=== PATIENT | male | born 1995 | race Asian ===

== ENCOUNTER 2024-03-30 18:08 | Emergency (ER) | payer BC, OTHER, MEDICAID, SELFPAY ==
[2024-03-30 18:12] VITALS: BP 150/84
[2024-03-30] MEDS: ATIVAN 2 MG IM (18:18)
[2024-03-30] MEDS: KEPPRA 2000 MG IV (18:30)
[2024-03-30 18:32] LABS: % Basophils 0.2 % (0-2); % Immature Granulocytes 0.3 % (0-0.5); % Lymphocytes 8.9 % (20.5-51.1); % Monocytes 7.4 % (1.7-9.3); % Neutrophils 83.2 % (42.2-75.2); Absolute Lymphocytes 1.2 10^3/uL (1.2-3.4); Hematocrit 42.2 % (39.0-52.0); Hemoglobin 15.2 g/dL (13.0-18.0); Mean Corpuscular Hgb 32.3 pg (27.0-31.0); Mean Corpuscular Volume 89.6 fL (80.0-94.0); Mean Platelet Volume 9.3 fL (7.4-10.4); Nucleated Red Blood Cells % 0 % (-); Platelet Count 375 10^3/uL (130-400); Red Blood Cell Count 4.71 10^6/uL (4.70-6.10); Red Cell Dist. Width 12.5 % (11.5-14.5); White Blood Cell Count 13.2 10^3/uL (4.8-10.8)
[2024-03-30 18:34] LABS: Glucose - Point of Care 87 mg/dl (70-99)
[2024-03-30 18:39] VITALS: BMI 26.3
[2024-03-30 18:43] LABS: ALT (SGPT) 72 U/L (0-50); AST (SGOT) 64 U/L (17-59); Albumin 5.1 g/dl (3.5-5.0); Alkaline Phosphatase 88 U/L (38-126); Blood Urea Nitrogen 7 mg/dl (9-20); Calcium 10.4 mg/dl (8.4-10.2); Carbon Dioxide 25 mmol/L (22-30); Chloride 97 mmol/L (98-107); Estimated Creatinine Clearance > 125 ml/min; Glucose 103 mg/dl (70-99); Potassium 4.4 mmol/L (3.5-5.1); Sodium 138 mmol/L (135-145); Total Bilirubin 1.5 mg/dl (0.2-1.3); Total Protein 8.1 g/dl (6.3-8.2); eGFR > 60.00
[2024-03-30] MEDS: TORADOL 15 MG IV (18:55)
[2024-03-30 19:00] VITALS: BP 141/92
[2024-03-30 19:15] VITALS: BP 129/81
--- NOTE | 2024-03-30 19:55 | ED.GENMED ---
History of Present Illness
General
Chief Complaint: Seizure
Time Seen by Provider: 03/30/24 18:21
History of Present Illness
History of Present Illness:
29-year-old male with history of seizure disorder and polysubstance abuse presents with Undercoater's due to seizure activity. Patient was being transported from [facility] to [facility] when he began to have seizure
activity. He was apparently admitted to [facility] 2 days ago for seizure activity and was prescribed levetiracetam which is his normal antiseizure medicine. On arrival the patient is unable to tell me when his last dose of
antiepileptics was. He states his last use of 'tranq' was 5 days ago. On arrival he is tremulous and grunting but noted to have purposeful movement of the extremities as well as swallowing activity
Past History
Past History
ED Past Medical History: Seizures (on keppra/gabapentin)
Social History
Tobacco: Former smoker
Drug: Former user (heroin/xanax)
Living: [facility]
Employment: Not employed
Review of Systems
Review of Systems
Allergies reviewed?: Yes
All Other Systems: ROS reviewed and negative except as documented in HPI and ROS
Phy Exam
Physical Exam
Physical Exam:
GEN: Disheveled, tremulous and grunting
Eyes: PERRLA, EOMs intact, no scleral icterus
HENT: NCAT, oral mucosa moist, maintaining airway, no oral secretions
Lungs: CTAB, no wheezes, rales, rhonchi, normal chest wall excursion
Cardiac: Mildly tachycardic, no murmur
Abdomen: S, NT, ND, NABS, no masses or hepatosplenomegaly
Neuro: Somnolent, arouses to tactile stimuli
MSK: No gross deformity or ecchymosis. No edema. No digital clubbing
Skin: No rashes, petechiae. Normal color, no pallor or jaundice.
Psych: Calm, cooperative, proper hygiene
Course
Orders/Labs/Results
Orders:
Orders
03/30/24 18:12
Lorazepam [Ativan] 4 mg .ROUTE .STK-MED ONE
03/30/24 18:17
Lorazepam [Ativan] 2 mg IM NOW STA
03/30/24 18:21
Levetiracetam Injectable [Keppra] 2,000 mg IV NOW STA
03/30/24 18:25
Complete Blood Count/With Diff Urgent
Comprehensive Metabolic Panel Urgent
03/30/24 18:50
Ketorolac [Toradol] 30 mg .ROUTE .STK-MED ONE
03/30/24 18:54
Ketorolac [Toradol] 15 mg .ROUTE .STK-MED ONE
Ketorolac [Toradol] 15 mg IV NOW STA
03/30/24 19:55
Buprenorphine [Subutex] 8 mg SL NOW STA
Gabapentin [Neurontin] 600 mg PO NOW STA
Abnormal Lab Results
03/30/24
18:25
WBC 13.2 H 10^3/uL
(4.8-10.8)
MCH 32.3 H pg
(27.0-31.0)
Absolute Neuts (auto) 11.0 H 10^3/uL
(1.4-6.5)
Absolute Monos (auto) 1.0 H 10^3/uL
(0.1-0.6)
Neutrophils % 83.2 H %
(42.2-75.2)
Lymphocytes % 8.9 L %
(20.5-51.1)
Chloride 97 L mmol/L
(98-107)
BUN 7 L mg/dl
(9-20)
Creatinine 0.6 L mg/dL
(0.7-1.3)
Glucose 103 H mg/dl
(70-99)
Calcium 10.4 H mg/dl
(8.4-10.2)
Total Bilirubin 1.5 H mg/dl
(0.2-1.3)
AST 64 H U/L
(17-59)
ALT 72 H U/L
(0-50)
Albumin 5.1 H g/dl
(3.5-5.0)
03/30/24 18:25
03/30/24 18:25
Vital Signs
Initial and Last Documented VS:
Initial Vital Signs
Temp Pulse Resp BP Pulse Ox
98 F 72 20 150/84 95
03/30/24 18:12 03/30/24 18:12 03/30/24 18:12 03/30/24 18:12 03/30/24 18:12
Last Documented Vital Signs
Temp Pulse Resp BP Pulse Ox
98 F 93 17 130/69 96
03/30/24 18:12 03/30/24 20:15 03/30/24 20:15 03/30/24 20:00 03/30/24 20:15
MDM/Problems Addressed
MDM/Problems Addressed:
Patient's initial presentation concerning for seizure in the setting of lack of antiepileptic use however his seizure-like activity resolved on its own. He was given 2 mg of Ativan with no further seizure-like activity in the emergency department.
His labs are reassuring. Given loading dose of IV Keppra, remained stable in the emergency department. Initiated on buprenorphine due to symptoms of withdrawal in the setting of polysubstance abuse, medically stable for discharge to correctional
facility
*Critical Care Note
Total Time (30-74mins, 75-104mins- exclusive of procedures): Not Applicable
ED Attending Note
-
Portions of this chart may have been created with voice recognition software.� Occasional wrong word or��sound alike� substitutions may have occurred due to the inherent limitations of voice recognition software.
Discharge Plan
Departure
Patient Disposition: Skilled Nursing
Date of Disposition: 03/30/24
Time of Disposition: 19:56
Discharge Problem:
Seizure, Polysubstance abuse
Instructions: Seizures, Adult (DC)
Prescriptions:
No Action
levetiracetam 500 MG tablet
1,000 mg PO BID
ibuprofen 200 MG tablet
400 mg PO BIDPRN PRN (Reason: mild pain)
buprenorphine HCl 2 MG tablet, sublingual
10 mg sublingual DAILY 0RF
buprenorphine HCl 8 MG tablet, sublingual
10 mg sublingual DAILY 0RF
quetiapine [Seroquel] 100 MG tablet
100 mg PO HS Qty: 30 0RF
gabapentin 300 MG capsule
300 mg PO TID Qty: 90 0RF
Referrals:
UNKNOWN - PT DOES,NOT KNOW [Family Provider] -
Activity Restrictions/Additional Instructions:
Valeriy Srivastava is medically cleared for incarceration
He received a loading dose of IV levetiracetam in the emergency department and should be administered his oral dose promptly after arrival. He was also initiated on buprenorphine as his last substance use was 5 days ago
Interventions
Interventions:
*Risk Screen - Suicide Last Done: 03/30/24 18:12
*General Assessment Last Done: 03/30/24 18:12
*Neglect/Abuse Screening Last Done: 03/30/24 18:12
*Nursing Disposition Last Done: 03/30/24 21:06
ED- Cardiac Assessment Last Done: 03/30/24 18:39
ED- Neurological Assessment Last Done: 03/30/24 18:39
ED- Pulmonary Assessment Last Done: 03/30/24 18:39
Discharge Date and Time
Discharge Date/Time: 03/30/24 21:07
Print Language: BULGARIAN
[2024-03-30 20:00] VITALS: BP 130/69
[2024-03-30] MEDS: NEURONTIN 600 MG PO (20:15)
[2024-03-30] MEDS: SUBUTEX 8 MG SL (20:15)
== END 2024-03-30 21:07 ==
LOC: EMR 18:08
PROVIDERS: Physician Assistant; EMERGENCY PHYSICIAN Emergency Medicine
DX: G40.909 Epilepsy, unspecified, not intractable, without status epilepticus (principal); F19.10 Other psychoactive substance abuse, uncomplicated; Z79.899 Other long term (current) drug therapy
CPT/HCPCS: 99284; 96374; 96375; 96372; 80053; 82962; 85025

== ENCOUNTER 2025-06-27 15:04 | Inpatient (IN) | payer OTHER, SELFPAY ==
[2025-06-27] VITALS (9 sets, daily range): BP systolic 128–143; BP diastolic 65–92; BMI 29.5; BMI 28.8
[2025-06-27 10:25] LABS: Hematocrit 49.7 % (39.0-52.0); Hemoglobin 17.0 g/dL (13.0-18.0); Mean Corp Hgb Conc. 34.2 g/dL (33.0-37.0); Mean Corpuscular Volume 87.3 fL (80.0-94.0); Nucleated Red Blood Cells % 0 % (-); Platelet Count 327 10^3/uL (130-400); Red Cell Dist. Width 13.4 % (11.5-14.5)
--- NOTE | 2025-06-27 10:26 | ED.GENMED ---
History of Present Illness
General
Chief Complaint: Seizure
Source: patient, records and police
Exam Limitations: none
Time Seen by Provider: 06/27/25 09:45
Nursing documentation reviewed up to this point in time: agreed with
History of Present Illness
History of Present Illness:
30-year-old male with a past medical history of polysubstance use, seizures, hypertension who presents to the emergency department in police custody from [facility]; presents for evaluation after apparent seizure. Patient reports that
he was at rehab at [facility] for polysubstance use�he says he has been using dexmedetomidine, fentanyl, alcohol, benzodiazepines. He says that prior to rehab at [facility] he was seen at [facility] for polysubstance
withdrawal and was admitted to the hospital. He says that he has been using drugs even during his stay in rehab with last use being 2 days ago reportedly. Apparently today he was arrested, transferred from [facility] and at [facility]
was witnessed to have an approximately 2-minute long tonic-clonic seizure. There was a report of postictal period. He was transported to the ER to be evaluated. Currently in the emergency room he says that he feels he is 'severely withdrawing.'
He says that he is 'sweating buckets' and that he feels nauseated and achy, shaky.
Past History
Past History
ED Past Medical History: Seizures (on keppra/gabapentin)
Social History
Tobacco: Former smoker
Drug: Former user (heroin/xanax)
Living: halfway
Employment: Not employed
Review of Systems
Review of Systems
All Other Systems: ROS reviewed and negative except as documented in HPI and ROS
Constitutional: Reports fatigue and chills; Denies fever
Respiratory: Denies trouble breathing
Cardiac: Reports diaphoresis; Denies chest pain
ABD/GI: Reports nausea; Denies abdominal pain
Neurological: Reports headache and other (Tremulous)
Psychiatric: Reports anxiety
Phy Exam
Physical Exam
Physical Exam:
General: Awake, alert, oriented x3; not toxic-appearing
Head: Normocephalic, atraumatic
Eyes: Conjunctiva normal, EOMI, pupils equal round and reactive to light bilaterally
Throat: Airway intact, handling secretions, tongue atraumatic
Neck: Trachea midline, supple without meningismus
Lungs: Clear to auscultation bilaterally, no wheezing, rales, rhonchi
Heart: Regular rate and rhythm, no murmurs, gallops, or rubs
Abd: Soft, non distended, nontender
Neuro: Cranial nerves grossly intact, speech fluid
Skin: Skin is warm and dry; he does have psoriatic rash on the chest and extremities which he says is chronic
Extremities: Warm and well-perfused
Scores
COW Clinical Opiate Withdrawal Scale
Resting Pulse Rate: 80 or below
Sweating-over past 30min not from room temp or activity: Reports chills or flushing
Restlessness-observation during assessment: Able to sit still
Pupil Size: Pupils pinned or normal size for room light
Bone or Joint Aches: Mild diffuse discomfort
Runny Nose or Tearing-not accounted for by cold/allergies: Not present
GI Upset-over last 30min: Nausea or loose stool
Tremor-observation of outstretched hands: No tremor
Yawning-observation during assessment: No yawning
Anxiety or Irritability: Patient reports increasing irritability or anxiousness
Gooseflesh Skin: Skin is smooth
Score: 5
Withdrawal Severity: Mild Withdrawal
Heart Failure Risk
Heart Failure Risk Score: Not Applicable
Heart Score for Chest Pain Patients
STEMI patient?: Not applicable
Withdrawal Assessment of Alcohol
Withdrawal Assessment Completed?: Yes
Nausea and Vomiting: Mild nausea with no vomiting
Tactile Disturbances: None
Tremor: No tremor
Auditory Disturbances: Not present
Paroxysmal Sweats: No sweat visible
Visual Disturbances: Not present
Anxiety: Moderately anxious, or guarded, so anxiety is inferred
Headache, Fullness in Head: Mild
Agitation: Normal activity
Orientation and clouding of sensorium: Oriented and can do serial additions
Total CIWA Score: 7
Alcohol Withdrawal Medication Recommendation: Equal to MSAS Score 0-4. Monitor & re-assess q2hrs, NO MEDICATION NEEDED
Course
Orders/Labs/Results
Orders:
Orders
06/27/25 10:07
Levetiracetam Injectable [Keppra] 1,000 mg .ROUTE .STK-MED ONE
06/27/25 10:19
Alcohol Urgent
Complete Blood Count/With Diff Urgent
Comprehensive Metabolic Panel Urgent
Creatine [Creatine Phosphokinase] Urgent
06/27/25 10:29
Keppra (Levetiracetam) [S] Urgent
Levetiracetam Injectable [Keppra] 1,000 mg IV NOW STA
06/27/25 10:30
Drug Screen, Urine [Urine Drug Abuse Screen] Urgent
0.9% Sodium Chloride 1000 ml [Nss] 1,000 ml IV BOLUS
Ceribell [Rapid Point of Care EEG (ED/ICU ONLY)] Q1H
Indications for use:: History of Epilepsy
06/27/25 10:34
Add On- LAB Urgent
Tests Added?: alcohol, keppra
Gabapentin [Neurontin] 300 mg PO NOW STA
06/27/25 11:27
NEUROLOGY CONSULT Urgent
Consulting Provider: Darnell Patel
Was physician already notified: Yes
06/27/25 11:39
Methadone HCl [Methadone 100 mg/10 ml] 115 mg PO ONCE ONE
Abnormal Lab Results
06/27/25
10:19
Absolute Neuts (auto) 6.7 H 10^3/uL
(1.4-6.5)
Neutrophils % 79.6 H %
(42.2-75.2)
Lymphocytes % 16.1 L %
(20.5-51.1)
Potassium 5.4 H mmol/L
(3.5-5.1)
Glucose 108 H mg/dl
(70-99)
Calcium 10.5 H mg/dl
(8.4-10.2)
AST 100 H U/L
(17-59)
ALT 51 H U/L
(0-50)
Creatine Kinase 6190 H U/L
(55-170)
Total Protein 9.9 H g/dl
(6.3-8.2)
Albumin 5.7 H g/dl
(3.5-5.0)
06/27/25 10:19
06/27/25 10:19
Vital Signs
Initial and Last Documented VS:
Initial Vital Signs
Temp Pulse Resp BP Pulse Ox
37.1 C 76 17 133/81 99
06/27/25 09:43 06/27/25 09:43 06/27/25 09:43 06/27/25 09:43 06/27/25 09:43
Last Documented Vital Signs
Temp Pulse Resp BP Pulse Ox
37.1 C 76 17 133/81 99
06/27/25 09:43 06/27/25 09:43 06/27/25 09:43 06/27/25 09:43 06/27/25 10:27
MDM/Problems Addressed
Differential Diagnosis Includes:
Seizure: Seizure disorder, withdrawal seizure, pseudoseizure
MDM/Problems Addressed:
30-year-old male with history as noted presents from [facility] after witnessed seizure-like activity. He has apparent history of seizures and is on Keppra also has a history of polysubstance use and was recently transferred from
[facility] where he was in rehab. He says he was still using drugs and rehab primary drugs being dexmedetomidine, fentanyl, benzos, alcohol. Vitals and exam are as above�while he has many complaints and says that he feels he is in withdrawal all
of his symptoms are subjective and he has no objective signs of withdrawal�he is normotensive without tachycardia or tachypnea. He says he feels he is sweating buckets but his skin is dry. Pupils are midrange and reactive, reports nausea but no
vomiting here. No piloerection. MSAS and COWS scores are as noted above. At this point we will hold off on benzodiazepines or other medications. Can provide some fluids, check labs, observe here in the ER for now.
Patient had an episode here of shaking activity�I assessed him at bedside during the episode which lasted for about a minute or 2. It self resolved. During the episode he was having rhythmic shaking of the arms and legs and twitching of the face
but seemed to be exhibiting some purposeful activities. He seemed to relax his arm to allow for an IV placement during the episode. Hold off on benzos as episode self terminated but will treat with IV Keppra. Seizure precautions. Cerebell
applied for monitoring of signs of status.
Patient had another brief episode while wearing cerebella but no status detected. Quickly self resolved. Labs reviewed CBC is unremarkable, CMP shows mild hyperkalemia and his CPK is elevated at 6190 consistent with mild rhabdomyolysis.
Thankfully his renal function is normal. IV fluids in progress. Elevated CPK at least suggestive of some seizure activity versus rhabdomyolysis from other. Discussed with neurology for consultation. Will admit for continued monitoring.
Discussed case with hospitalist.
Patient is requesting his dose of methadone. Confirmed that last dose of methadone was yesterday at [facility] 115 mg. Ordered dose here.
Chronic conditions affecting care:
Seizure history, polysubstance use
*Pulse Oximetry
SaO2: 99
Patient hypoxic: no (99%)
*Critical Care Note
Total Time (30-74mins, 75-104mins- exclusive of procedures): Not Applicable
Data Reviewed
Review of Other/Old Records Reveals: Labs and Records
Source: patient and records (See attached snapshots from care everywhere where I was able to review recent visits to [facility])
Patient Management
Discussion with other providers: Hospitalist (Discussed with hospitalist) and Suppression Crew Leader (Discussed with neurologist)
Escalation/DeEscalation of care consider admission/obs:
Admission indicated
Update Note
Update Note:
ED Attending Note
-
Portions of this chart may have been created with voice recognition software.� Occasional wrong word or��sound alike� substitutions may have occurred due to the inherent limitations of voice recognition software.
Discharge Plan
Departure
Patient Disposition: Admit
Date of Disposition: 06/27/25
Time of Disposition: :31
Admit to doctor: Bryan
Presentation/result/management discussed w/ accepting MD/DO: Hospitalist
Patient with high blood pressure during this ER visit?: No
Discharge Problem:
Seizures, Polysubstance use disorder, Rhabdomyolysis
Prescriptions:
No Action
clonidine HCl 0.1 mg Tablet
0.1 mg PO BID
acetaminophen [Tylenol] 325 mg Tablet
650 mg PO Q4HPRN PRN (Reason: mild pain)
triamcinolone acetonide 0.5 % Cream
1 applic TOPICAL BID
levetiracetam [Keppra] 500 mg Tablet
500 mg PO BID
methadone 10 mg Tablet
115 mg PO DAILY
clindamycin HCl 150 mg Capsule
300 mg PO Q6H
Rx Instructions:
start 06/23/25 and stop 06/30/25
chlorpromazine [Thorazine] 10 mg Tablet
10 mg PO Q6HPRN PRN (Reason: hiccups)
magnesium hydroxide [Milk of Magnesia] 400 mg/5 mL Suspension
2,400 mg PO DAILYPRN PRN (Reason: constipation)
gabapentin 800 mg Tablet
800 mg PO TID
ibuprofen [Motrin] 400 mg Tablet
400 mg PO TIDPRN PRN (Reason: mild pain)
nicotine 21 mg/24 hr Patch 24 Hour
1 patch TRANSDERMAL DAILY
docusate sodium [Colace] 100 mg Capsule
100 mg PO BID
folic acid 1 mg Tablet
1 mg PO DAILY
clonidine 0.3 mg/24 hr Patch Weekly
1 patch TRANSDERMAL TH
alum-mag hydroxide-simeth [Maalox] 200-200-20 mg/5 mL Suspension
30 ml PO QIDPRN PRN (Reason: heartburn)
benzocaine 20 % Gel
1 applic MUCOUS MEMBRANE BIDPRN PRN (Reason: mouth pain)
Leoti Cough Drops Lozenge
3.1 mg MUCOUS MEMBRANE Q4HPRN PRN (Reason: cough)
nicotine (polacrilex) 4 mg Lozenge
4 mg BUCCAL Q2HPRN PRN (Reason: nicotine craving)
bupropion HCl [Wellbutrin XL] 150 mg Tablet Extended Release 24 Hr
150 mg PO DAILY
cholecalciferol (vitamin D3) [Vitamin D3] 25 mcg (1,000 unit) Tablet
25 mcg PO DAILY
Cepacol Sore Throat (isabel-men) 15-2.6 mg Lozenge
1 rika MUCOUS MEMBRANE Q4HPRN PRN (Reason: sore throat)
guaifenesin 600 mg Tablet Extended Release 12hr
1,200 mg PO BIDPRN PRN (Reason: cough)
Referrals:
[facility] [Family Provider, General]
Interventions
Interventions:
*Risk Screen - Suicide Last Done: 06/27/25 09:49
*ED COVID-19 Vaccine History Last Done: 06/27/25 09:50
ED- Cardiac Assessment Last Done: 06/27/25 09:53
ED- Neurological Assessment Last Done: 06/27/25 09:53
ED- Pulmonary Assessment Last Done: 06/27/25 09:54
Discharge Date and Time
Print Language: KITTITIAN
[2025-06-27] MEDS: KEPPRA 1000 MG IV (10:34)
[2025-06-27] MEDS: NSS 1000 IV ×2 (10:35→15:28)
[2025-06-27] MEDS: NEURONTIN 300 MG PO (11:12)
[2025-06-27 11:13] LABS: ALT (SGPT) 51 U/L (0-50); AST (SGOT) 100 U/L (17-59); Albumin 5.7 g/dl (3.5-5.0); Alkaline Phosphatase 103 U/L (38-126); Blood Urea Nitrogen 15 mg/dl (9-20); Calcium 10.5 mg/dl (8.4-10.2); Carbon Dioxide 25 mmol/L (22-30); Chloride 102 mmol/L (98-107); Estimated Creatinine Clearance > 125 ml/min; Glucose 108 mg/dl (70-99); Potassium 5.4 mmol/L (3.5-5.1); Sodium 137 mmol/L (135-145); Total Protein 9.9 g/dl (6.3-8.2); eGFR > 60.00
--- NOTE | 2025-06-27 11:58 | HPS.HSE ---
Family Physician
-
Family Physician: Facility [facility]
Chief Complaint
-
seizures
History of Present Illness
2 guards are inside the room while on obtaining the history.
30-year-old male with past medical history of polysubstance abuse, CHF, hypertension presented to the ED in police custody from [facility] for evaluation of seizure. The seizure started today morning he felt initially dizziness, room
spinning sensation, lites hurting his eyes and really bright, shivering, nauseating and started to have seizure episodes. Asked the history from security Mr. Clarke he explained he did 1 episode for a minute, followed by nurse practitioner gave her
emergency medications. While on the ambulance he did seizure once followed by on the ED after admission for 45 seconds he seized for twice today. His last meal was yesterday afternoon around 5 PM. However 2 days ago he used dope, medetomidine,
Prazudec at [place] for substance use, he was seen at [facility] for polysubstance withdrawal and was admitted to the hospital. Where he was using the drug even during that rehab. Today he was arrested and transferred
from [place] to [facility] who was witnessed to have an approximately a minute long tonic-clonic seizure.
Currently he states that he feels restlessness, sweating, neck hurts, bugs crawling under his skin, and vomiting once. He denies chest pain, palpitation, specific abdominal pain, dysuria. On ED he got Keppra, levetiracetam IV, followed by drug
screening, sodium chloride 1000 mL IV bolus by given his creatinine kinase elevation, methadone, gabapentin 300 mg oral was given.
His past medical history which includes he was compliance on gabapentin, Keppra, he had similar episodes before twice and got admitted in [facility], diagnosed with CMV, untreated hep C. However he has no allergy history. Social
history includes using alcohol, cocaine, medetomidine, dope. He is a former smoker. His family is living at [facility], he started to having substances around 15 of his age, and he does not have congenital, and young age seizure history.
Currently he is living in [facility].
Medical History
Past Medical History
Past Medical History: Reports Seizures and Other (Substance)
Past Surgical History: Reports None
Social History
Tobacco: Former Smoker
Alcohol: Other (Depends on availability)
Drug: Marijuana, Cocaine and IVDA
Personal: Single
Living: Longterm
Employment: Not Employed
Family History
Family History: Not pertinent
Allergies / Home Medications
Allergies
Allergy/AdvReac Type Severity Reaction Status Date / Time
latex Allergy Unknown Verified 02/03/21 01:38
Home Medications
acetaminophen 325 mg tablet (Tylenol) 650 mg PO Q4HPRN PRN mild pain 06/27/25
aluminum-mag hydroxide-simethicone 200 mg-200 mg-20 mg/5 mL oral susp 30 ml PO QIDPRN PRN heartburn 06/27/25
benzocaine 15 mg-menthol 2.6 mg lozenges (Cepacol Sore Throat (benzocaine-menthol)) 1 rika mucous membrane Q4HPRN PRN sore throat 06/27/25
benzocaine 20 % mucosal gel 1 applic mucous membrane BIDPRN PRN mouth pain 06/27/25
bupropion HCl 150 mg 24 hr tablet, extended release (Wellbutrin XL) 150 mg PO DAILY 06/27/25
chlorpromazine 10 mg tablet 10 mg PO Q6HPRN PRN hiccups 06/27/25
cholecalciferol (vitamin D3) 25 mcg (1,000 unit) tablet (Vitamin D3) 25 mcg PO DAILY Supplement 06/27/25
clindamycin HCl 150 mg capsule 300 mg PO Q6H Infection 06/27/25
clonidine 0.3 mg/24 hr weekly transdermal patch 1 patch transdermal TH 06/27/25
clonidine HCl 0.1 mg tablet 0.1 mg PO BID 06/27/25
docusate sodium 100 mg capsule (Colace) 100 mg PO BID 06/27/25
eucalyptus-menthol oral mucosal lozenge 3.1 mg mucous membrane Q4HPRN PRN cough 06/27/25
folic acid 1 mg tablet 1 mg PO DAILY 06/27/25
gabapentin 800 mg tablet 800 mg PO TID 06/27/25
guaifenesin 600 mg tablet, extended release 12 hr 1,200 mg PO BIDPRN PRN cough 06/27/25
ibuprofen 400 mg tablet 400 mg PO TIDPRN PRN mild pain 06/27/25
levetiracetam 500 mg tablet (Keppra) 500 mg PO BID Seizures 06/27/25
magnesium hydroxide 400 mg/5 mL oral suspension (Milk of Magnesia) 2,400 mg PO DAILYPRN PRN constipation 06/27/25
methadone 10 mg tablet 115 mg PO DAILY 06/27/25
nicotine (polacrilex) 4 mg buccal lozenge 4 mg buccal Q2HPRN PRN nicotine craving 06/27/25
nicotine 21 mg/24 hr daily transdermal patch 1 patch transdermal DAILY 06/27/25
triamcinolone acetonide 0.5 % topical cream 1 applic topical BID psoriasis 06/27/25
Allergies reflects when Allergies were last updated in [facility].
Home Medications with original date entered in [facility]
Allergy/Medication List:
Allergies
Allergy/AdvReac Type Severity Reaction Status Date / Time
latex Allergy Unknown Verified 02/03/21 01:38
Review of Systems
-
History Source: Patient
A 12 point ROS was completed and negative except as noted: Yes
Physical Exam
Vital Signs
Vital Signs
Temp Pulse Resp BP Pulse Ox
98.8 F 76 17 133/81 99
06/27/25 09:43 06/27/25 09:43 06/27/25 09:43 06/27/25 09:43 06/27/25 10:27
Physical Exam
General: Appears in Distress, Pain and Sweats
HEENT: Moist mucous membranes and Other (mydriasis)
Respiratory: Clear
Cardiac: S1/S2 and Tachycardia
GI: Soft, Tender and No Hepatosplenomegaly
Genito-urinary: No costovertebral tender
Musculoskeletal: No Clubbing and No Edema
Skin: Warm and Rash (Bilateral elbow,, forearm rashes due to psoriatic)
Neuro: AO x 3, No Motor Deficits, Nonfocal/grossly intact, Cranial Nerves Intact, No Sensory Deficits and Tremors
Hematologic/Lymphatic: No Lymphadenopathy
Psych: Intact Judgment/Insight
Laboratory Results
-
06/27/25 10:19
06/27/25 10:19
Laboratory Results
Total Bilirubin 0.9 mg/dl (0.2-1.3) 06/27/25 10:19
AST 100 U/L (17-59) H 06/27/25 10:19
ALT 51 U/L (0-50) H 06/27/25 10:19
Alkaline Phosphatase 103 U/L (38-126) 06/27/25 10:19
Impression/Plan
-
IMPRESSION AND PLAN:
30-year-old male with past medical history of polysubstance abuse, CHF, hypertension presented to the ED in police custody from [facility] for evaluation of seizure.
# Polysubstance abuse induce seizure :
WBC normal, afebrile, similar episodes in the past, recent drug intake 2 days ago.
Received methadone, gabapentin.
Received Keppra, levetiracetam IV.
Currently on cerebella
Methadone long-acting administration for opioid withdrawal. COWS scale
Neurologist consult
bindery worker consult
Overdose education.
No need to follow up MSAS scale by given negative alcohol withdrawal urine screen.
plan: cows scale --- methadone maintenance, subutex on hold
iv 1 gm keppra, follow up with keppra level
as needed benzodiazepines medication.
Administer gabapentin 800 mg , folic acid, thiamine
Will call and inquire [facility] facility healthcare provider to know the reason for methadone instead of buprenorphine.
On telemetry currently repeat EKG series tonight and tomorrow by given methadone overnight to check has QT
EKG showed normal sinus rhythm with sinus arrhythmia, no significant
# Rhabdomyolysis secondary to SEIZURES:
Labs: WBC 8.4, hemoglobin 15.2--17 today,
Potassium 5.4, blood glucose 108 high, calcium 10.5 high, bun 15, creatinine 0.8, LFTs elevated, creatinine kinase 6190 high
Potassium binder administered for hyperkalemia.
Causes for rhabdomyolysis includes traumatic, mechanical injury, prolonged immobilization, seizures, wrist strain, surgery, drug abuse, sepsis, electrolyte disorders, heat exposure.
However in this patient he has a history of seizure
Currently on cerebella EEG today showed no evidence of status epilepticus.
Monitor CK, IV fluids administration for now
Tylenol as needed for his headache and pain
Avoid CONTRAST, NSAIDS? By given his high CPK level.
# Abnormal liver function test:
Secondary to hepatitis C positive (infection source), drug abuse
Hepatitis B IgM antibody negative unimmunized,
Order hepatitis panel but given his unimmunized status
USG ABDOMEN for tomorrow
Code: Full
Disposition: Longterm
DVT prophylaxis: Lovenox subcutaneous
Diet: regular
[2025-06-27] MEDS: METHADONE 100 MG/10 ML 115 MG PO (12:33)
--- NOTE | 2025-06-27 12:55 | W.RAPID.EEG ---
Rapid EEG
-
Procedure Date: 06/27/25
Patient Status: Emergency Room
Results:
IMPRESSION:
No evidence of status epilepticus
Patient awake and drowsy.
Recording Information:
Diagnostic Recording Time: 02:11:01 (131 minutes)
Recording 1: [email or web address]
Start Time: Jun 27, 2025 10:26 AM End Time: Jun 27, 2025 12:37 PM
Recording Technique: This EEG was obtained using a 10 lead, 8 channel system positioned circumferentially without any parasagittal coverage (rapid EEG). Computer selected EEG is reviewed as well as background features and all clinically significant
events. Clarity algorithm utilized and implemented to provide analysis of underlying activity and seizure detection used to facilitate reading. ICD-10 Code HT46L34
Clinical History: OLINDA THOMSON is a 30 year old Prior Seizure patient undergoing EEG to screen for non-convulsive status epilepticus.
--- NOTE | 2025-06-27 14:43 | CON.NEURO4 ---
Consultation - Neurology 4
-
CONSULTING PHYSICIAN: Dr. Darnell Patel
REFERRING PHYSICIAN: Dr. Josh Sanders
DICTATED BY: Dr. Darnell Patel
DATE/TIME OF REQUEST: 06/26/2025
DATE/TIME OF CONSULTATION: 06/26/2025
Reason for Consultation: Seizure
ASSESSMENT AND PLAN:
30-year-old male with a past medical history of seizure disorder, polysubstance abuse, primary hypertension that presented to the emergency department in police custody from [facility] after a witnessed seizure event. Patient was recently at [place]
rehab for polysubstance abuse (dexmedetomidine, fentanyl, alcohol, benzodiazepines) where he states he was continuing to use drugs. At some point was arrested and transferred from [place] to [facility] and during the transfer was found to have a
2-minute long tonic-clonic episode with reported postictal period subsequently. Was sent to the ED at that time. The patient says that his tongue feels sore on the left side and he also gives history of urinary incontinence.
Patient likely had a breakthrough seizure and the cause was likely that he missed Keppra and gabapentin doses over the last 2 days as per patient.
. The plan is to start the patient on Keppra 1000 mg twice a day and continue with gabapentin 800 mg 3 times daily.
. Would recommend to change home bupropion to another antidepressant as it can cause seizures. The patient will benefit from a psychiatry consult.
. Seizure precautions including no driving for 6 months and reporting to the [employer] as per law.
. Compliance with the medications was emphasized and the patient verbalized understanding of our discussion.
Follow-up with neurology outpatient in 4 to 6 weeks.
Will sign off. Please call if you have any question.
History of Present Illness:
30-year-old male with a past medical history of seizure disorder, polysubstance abuse, primary hypertension that presented to the emergency department in police custody from [facility] after a witnessed seizure event. Patient was recently at [place]
rehab for polysubstance abuse (dexmedetomidine, fentanyl, alcohol, benzodiazepines) where he states he was continuing to use drugs. At some point was arrested and transferred from [place] to [facility] and during the transfer was found to have a
2-minute long tonic-clonic episode with reported postictal period subsequently. Was sent to the ED at that time. The patient says that his tongue feels sore on the left side and he also gives history of urinary incontinence.
Past Medical History:
Seizure disorder, polysubstance abuse and primary hypertension.
Review of Systems:
The 10 point review systems was negative aside from as given the above history of present illness.
Neurologic Examination:
Alert and oriented x 3,
Sspeech is clear,
The cranial nerves II to XII grossly intact,
Visual [place] are full to confrontation bilaterally,
The motor strength is grossly 5 out of 5 bilaterally in upper and lower extremities,
The sensations are intact bilaterally,
There was no limb ataxia seen.
Vital Signs and Labs
-
Vital Signs and Labs:
Vital Signs
Temp Pulse Resp BP Pulse Ox
37.1 C 88 14 131/65 96
06/27/25 09:43 06/27/25 11:45 06/27/25 11:45 06/27/25 11:12 06/27/25 11:45
Lab Results
06/27/25 10:19
06/27/25 10:19
Sodium 137 mmol/L (135-145) 06/27/25 10:19
Potassium 5.4 mmol/L (3.5-5.1) H 06/27/25 10:19
BUN 15 mg/dl (9-20) 06/27/25 10:19
Glucose 108 mg/dl (70-99) H 06/27/25 10:19
Calcium 10.5 mg/dl (8.4-10.2) H 06/27/25 10:19
Medications
-
Active Medications
Generic Name Dose Route Start Last Admin
Trade Name Freq PRN Reason Stop Dose Admin
Sodium Chloride 1,000 mls @ 100 mls/hr 06/27/25 14:15
Nss IV
.Q10H DALIA
Home Medications
�Medication �Instructions �Recorded
acetaminophen 325 mg tablet 650 mg PO Q4HPRN PRN mild pain 06/27/25
(Tylenol)
aluminum-mag hydroxide-simethicone 30 ml PO QIDPRN PRN heartburn 06/27/25
200 mg-200 mg-20 mg/5 mL oral susp
benzocaine 15 mg-menthol 2.6 mg 1 rika mucous membrane Q4HPRN PRN 06/27/25
lozenges (Cepacol Sore Throat sore throat
(benzocaine-menthol))
benzocaine 20 % mucosal gel 1 applic mucous membrane BIDPRN 06/27/25
PRN mouth pain
bupropion HCl 150 mg 24 hr tablet, 150 mg PO DAILY 06/27/25
extended release (Wellbutrin XL)
chlorpromazine 10 mg tablet 10 mg PO Q6HPRN PRN hiccups 06/27/25
cholecalciferol (vitamin D3) 25 25 mcg PO DAILY Supplement 06/27/25
mcg (1,000 unit) tablet (Vitamin
D3)
clindamycin HCl 150 mg capsule 300 mg PO Q6H Infection 06/27/25
clonidine 0.3 mg/24 hr weekly 1 patch transdermal TH 06/27/25
transdermal patch
clonidine HCl 0.1 mg tablet 0.1 mg PO BID 06/27/25
docusate sodium 100 mg capsule 100 mg PO BID 06/27/25
(Colace)
eucalyptus-menthol oral mucosal 3.1 mg mucous membrane Q4HPRN PRN 06/27/25
lozenge cough
folic acid 1 mg tablet 1 mg PO DAILY 06/27/25
gabapentin 800 mg tablet 800 mg PO TID 06/27/25
guaifenesin 600 mg tablet, 1,200 mg PO BIDPRN PRN cough 06/27/25
extended release 12 hr
ibuprofen 400 mg tablet 400 mg PO TIDPRN PRN mild pain 06/27/25
levetiracetam 500 mg tablet 500 mg PO BID Seizures 06/27/25
(Keppra)
magnesium hydroxide 400 mg/5 mL 2,400 mg PO DAILYPRN PRN 06/27/25
oral suspension (Milk of Magnesia) constipation
methadone 10 mg tablet 115 mg PO DAILY 06/27/25
nicotine (polacrilex) 4 mg buccal 4 mg buccal Q2HPRN PRN nicotine 06/27/25
lozenge craving
nicotine 21 mg/24 hr daily 1 patch transdermal DAILY 06/27/25
transdermal patch
triamcinolone acetonide 0.5 % 1 applic topical BID psoriasis 06/27/25
topical cream
[2025-06-27] MEDS: LOKELMA 10 GRAM PO (14:46)
[2025-06-27] MEDS: CLEOCIN 300 MG PO (15:42)
[2025-06-27] MEDS: NEURONTIN 800 MG PO ×2 (15:42→22:04)
[2025-06-27] MEDS: LOVENOX 40 MG SC (17:23)
[2025-06-27] MEDS: CATAPRES 0.1 MG PO (20:21)
[2025-06-27] MEDS: ANESTHETIC LOZENGE 1 LOZENGE PO (20:22)
[2025-06-27] MEDS: KEPPRA 1000 MG PO (20:22)
[2025-06-27] MEDS: NICORETTE 4 MG PO (20:22)
[2025-06-27] MEDS: COLACE PO (20:28)
[2025-06-27] MEDS: TYLENOL 650 MG PO (20:30)
[2025-06-27] MEDS: ATIVAN 1 MG PO (22:04)
[2025-06-28] MEDS: NSS 1000 IV ×3 (01:14→21:54)
[2025-06-28 02:52] VITALS: BP 119/63
[2025-06-28 07:00] VITALS: BP 127/70
--- NOTE | 2025-06-28 07:15 | W.PN.HOSP.TC ---
Today's Communication/Plan
-
Monitor QTc, CK, urine test levetiracetam level
Follow-up with [facility] abdomen, hepatitis panel
Keppra dosage increased to 1000 mg
Reporting to [employer] driving license
Discontinue Wellbutrin.
psychologist counselling
iv fluids
Assessment / Plan
Assessment / Plan
30-year-old male with past medical history of polysubstance abuse, CHF, hypertension presented to the ED in police custody from [facility] for evaluation of seizure.
Vitals: Tmax 98.3, RI 70, BP 127/70, RR 18, SaO2 99 at room air.
Heam:
Chemistry:
Urine toxicology results positive for urine buprenorphine, methadone, benzodiazepines,
levetiracetam results are still pending
CK results are pending
# Polysubstance abuse induce seizure :
WBC normal, afebrile, similar episodes in the past, recent drug intake 2 days ago.
Received methadone, gabapentin.
Received Keppra, levetiracetam IV.
Currently on cerebella
Methadone long-acting administration for opioid withdrawal. COWS scale
Urine toxicology results positive for urine buprenorphine, methadone, benzodiazepines,
levetiracetam results are still pending
form worker consult
Overdose education.
No need to follow up MSAS scale by given negative alcohol withdrawal urine screen.
plan: cows scale --- methadone maintenance, subutex on hold
Currently received Keppra 1000 mg, monitor Keppra serum level.
as needed benzodiazepines medication.
Administer gabapentin 800 mg , folic acid, thiamine
Called [facility] and discussed regards his medications history at the facility--he was taking Wellbutrin 75 mg, 16 mg of buprenorphine previously, methadone currently he was not taking at facility.
Patient kept on telemetry and currently his QT interval 473 improved when comparing with yesterday by given the methadone administration.
EKG showed normal sinus rhythm with sinus arrhythmia, no significant
plan: Psychiatrist consultation
Follow-up on his ck level until it goes down to 500-700, until that continue IV fluids and follow-up with RFT's
Neurologist consulted: increased the dosage of Keppra 1000 mg twice a day, gabapentin 800 mg 3 times daily, and recommended to change home bupropion to another antidepressant because of low seizure threshold.
Recommended for psychiatry consult, seizure precautions including no driving for 6 months and reporting to the [facility] as per law.
Advised to compliance with the medications, follow-up with neurology outpatient in 4 to 6 weeks after the discharge.
# Rhabdomyolysis secondary to SEIZURES:
Labs: WBC 8.4, hemoglobin 15.2--17 today,
Potassium 5.4, blood glucose 108 high, calcium 10.5 high, bun 15, creatinine 0.8, LFTs elevated, creatinine kinase 6190 high
Potassium binder administered for hyperkalemia.
Causes for rhabdomyolysis includes traumatic, mechanical injury, prolonged immobilization, seizures, wrist strain, surgery, drug abuse, sepsis, electrolyte disorders, heat exposure.
However in this patient he has a history of seizure
Currently on cerebella EEG today showed no evidence of status epilepticus.
CK results for today
Tylenol as needed for his headache and pain
Avoid CONTRAST, NSAIDS? By given his high CPK level.
# Abnormal liver function test:
Secondary to hepatitis C positive (infection source), drug abuse
Hepatitis B IgM antibody negative unimmunized,
Order hepatitis panel but given his unimmunized status
USG ABDOMEN for today but given the history of hep C positive--cirrhosis?
Code: Full
Disposition: [facility].
DVT prophylaxis: Lovenox subcutaneous
Diet: regular.
Anticipated Discharge: 24 - 48 hours
Subjective/Interval History
-
Date of Service: June 28, 2025
2 guards present while obtaining the history today morning:
Overnight patient 1 bowel movement, feels chills, dizziness, 'chest feels sore' non radiating localized chest pain not associated with shortness of breath, palpitation. However he feels better in comparing with yesterday.
Spoke through phone to [facility] regards medication reconcile, they have given the details regards his medication what he was taking at the facility which includes Wellbutrin 75 mg (bupropion )once a day, buprenorphine 16 mg
weekly previously but not currently, methadone currently is not taking at facility and they had mentioned the patient might be a good team methadone from the other sources but not inside the facility.
Objective Data
-
Labs:
Laboratory Results
06/28/25
06:00
WBC Pending
Hgb Pending
Hct Pending
Plt Count Pending
Sodium Pending
Potassium Pending
Chloride Pending
Carbon Dioxide Pending
BUN Pending
Creatinine Pending
Glucose Pending
Calcium Pending
Total Bilirubin Pending
AST Pending
ALT Pending
Alkaline Phosphatase Pending
Vital Signs:
Vital Signs
Temp Pulse Resp BP Pulse Ox
97.6 F 70 16 119/63 98
06/28/25 02:52 06/28/25 02:52 06/28/25 02:52 06/28/25 02:52 06/28/25 02:52
I&O
06/27/25 06/28/25 06/29/25
06:59 06:59 06:59
Intake Total 1944 / 194
Output Total 450 / 450
Balance 1495 / 1495
Review of Systems
-
History Source: Patient
All other systems: Reviewed and negative
Physical Exam
-
General: No Apparent Distress
Respiratory: Clear to Auscultation
Cardiac: Regular Rhythm and S1/S2
GI: Soft, Nontender, Nondistended and Normal Bowel Sounds
Genito-urinary: No Costovertebral Tender
Musculoskeletal: No Clubbing and No Edema
Skin: Warm
Neuro: AO x 3, No Motor Deficits, Tremors, Nonfocal/Grossly Intact and Central Nerve's Intact
Psych: Calm
[2025-06-28] MEDS: KEPPRA 1000 MG PO ×2 (07:47→20:51)
[2025-06-28] MEDS: THIAMINE INJECTION 200 MG IV ×2 (07:48)
[2025-06-28] MEDS: FOLVITE 1 MG PO (07:48)
[2025-06-28] MEDS: CATAPRES 0.1 MG PO ×2 (07:48→20:51)
[2025-06-28] MEDS: VITAMIN D3 (cholecalciferol) 25 MCG PO (07:48)
[2025-06-28] MEDS: COLACE PO ×3 (07:48→20:51)
[2025-06-28] MEDS: NEURONTIN 800 MG PO ×3 (07:48→21:54)
[2025-06-28] MEDS: NICODERM TRANSDERMAL 21 MG TRANSDERM (07:48)
[2025-06-28] MEDS: METHADONE 100 MG/10 ML 115 MG PO (07:49)
[2025-06-28] MEDS: CATAPRES-TTS-3 0.3 MG TRANSDERM (07:50)
[2025-06-28] MEDS: TYLENOL 650 MG PO ×2 (07:52→20:56)
--- NOTE | 2025-06-28 09:37 | PTCARENOTE ---
pt aaox3. states pain in back and jaw. tylenol given. pt in room with two guards. ivf running as ordered. no seizure activity noted
[2025-06-28 11:00] VITALS: BP 118/64
[2025-06-28 12:09] LABS: Hematocrit 43.9 % (39.0-52.0); Hemoglobin 15.0 g/dL (13.0-18.0); Mean Corp Hgb Conc. 34.2 g/dL (33.0-37.0); Mean Corpuscular Volume 87.1 fL (80.0-94.0); Platelet Count 249 10^3/uL (130-400); Red Cell Dist. Width 13.4 % (11.5-14.5)
[2025-06-28 12:51] LABS: ALT (SGPT) 33 U/L (0-50); AST (SGOT) 46 U/L (17-59); Albumin 4.4 g/dl (3.5-5.0); Alkaline Phosphatase 62 U/L (38-126); Blood Urea Nitrogen 13 mg/dl (9-20); Calcium 9.6 mg/dl (8.4-10.2); Carbon Dioxide 24 mmol/L (22-30); Chloride 108 mmol/L (98-107); Estimated Creatinine Clearance > 125 ml/min; Glucose 130 mg/dl (70-99); Potassium 4.3 mmol/L (3.5-5.1); Sodium 137 mmol/L (135-145); Total Protein 7.4 g/dl (6.3-8.2); eGFR > 60.00
--- NOTE | 2025-06-28 13:20 | CS.PSYCHR ---
Consult Summary - Psychiatry
-
Pt is a 30 yo male, brought to from [facility] after a witnessed generalized seizure. Pt was on Wellbutrin XL, which has been discontinued due to seizure in setting of seizure d/o and substance use. Pt was at [facility]hab for polysubstance abuse
(dexmedetomidine, fentanyl, alcohol, benzodiazepines) where he reportedly continued to use drugs. He was arrested and transferred to [facility] and during the transfer was found to have a 2-minute tonic-clonic episode with reported postictal symptoms.
In ED pt c/o severe withdrawal symptoms- nausea, sweats and aches. Psychiatry asked to see the pt to address depression symptoms, possible alternatives to Wellbutrin XL. QTcB 473 today, was 458 yesterday.
On interview, pt is alert, oriented, calm, cooperative, slightly slowed, distracted by attempts at blood-drawing. He reports a hx of 'seasonal depression.' Pt states he has tried Zoloft, Prozac, Effexor and other SSRI's, Seroquel, as well as
Remeron for insomnia. Pt is now on Methadone 110 mg daily, Keppra, Gabapentin, Clonidine, MSAS/Ativan protocol.
PMH: Seizure d/o, hx of Hep C
Psych Hx: previously seen by Psychiatry at January 2021, Sep 2019 for similar presentations; past inpatient dual dx admissions- [place] 2019, multiple detox and rehabs- most recently at [facility] for drug rehab. Pt has a long hx of opioid,
benzo, cocaine use, including IV use.
MSE: alert, oriented, calm, cooperative. Speech coherent, thought clear/goal-directed. No suicidal ideation evident. No signs of psychosis. Mood mildly dysphoric, affect appropriate.
Insight limited to fair
Imp: Polysubstance Use, including opioid, benzo. Pt c/o seasonal depression, states Wellbutrin XL was not helping lately, now stopped due to seizure risk
Rec: There is no easy alternative to Wellbutrin XL 150 mg. SSRI's also have a small affect on the seizure threshold and potential for QTc prolongation worsened with pt's on Methadone maintenance. Discussed possibly looking at Lamictal, which is
preventive/mood-stabilizing with some antidepressant effect. Will follow and discuss further with the pt
[2025-06-28] MEDS: THIAMINE INJECTION IV ×3 (15:11→23:54)
[2025-06-28] MEDS: ATIVAN 1 MG PO (15:13)
[2025-06-28 15:30] LABS: Glucose - Point of Care 95 mg/dl (70-99)
[2025-06-28] MEDS: ATIVAN 2 MG IV (15:30)
[2025-06-28 15:32] VITALS: BP 130/101
--- NOTE | 2025-06-28 15:49 | W.PN.UPDATE ---
Update Note
Progress Note Update
around 3: 27 PM 06/28 i got tt from the nurse EMILY sent me alert TT text that the pt was having seizures, and was administered Ativan 1 mg P.O depending on COWS scale earlier today and received Ativan 2 mg iv, at the time of the episode. the
episode lasted for less than a minute, and afterwards he had confusion.
I and senior Dr Stovall were here around 3: 35 PM at the time we saw the pt he was in post ictal state however no symptoms for urination, salivation, biting tongue, or any injuries, however he was confused, and complained he has headache ' i have
headache at prefrontal cortex'. around 3: 43 PM he was able to follow the commands includes wiggling his toes, and responding for the questions.
Vitals: BP 130/101, 100% room air, RR18, Temp 98.2, HR 100
o/e: awake, drowsy, confused.
he was complaining for anxiety and requested for medication earlier today because we stopped the bupropion because of its probable risk of inducing seizures. Seen by psychiatrist earlier today.
plan:
will transfer to ICU, and record with cerebell if he has one more episode of seizures today,
consult neurology
order EEG.
IV Ativan 2 mg/ PRN for acute episode.
[2025-06-28] MEDS: LOVENOX 40 MG SC (17:10)
--- NOTE | 2025-06-28 17:37 | PTCARENOTE ---
at 1500 today pt complaining of increased anxiety msas done and ativan po given as ordered. 15 min later called into room to see pt having tonic clonic tremors. unresponsive. rapid response called. res notified. 2mg iv ativan ordered.
activity lasted approx one min. post pt lethargic and confused. pt now awake oriented and states he feels better.
[2025-06-28 18:23] LABS: Hepatitis C Antibody Reactive (Negative)
[2025-06-28 20:09] VITALS: BP 129/86
[2025-06-28] MEDS: NICORETTE 4 MG PO (20:56)
[2025-06-28] MEDS: MOTRIN 400 MG PO (23:53)
[2025-06-29] VITALS (11 sets, daily range): BP systolic 123–161; BP diastolic 76–128
[2025-06-29] MEDS: ATIVAN 1 MG PO (00:07)
--- NOTE | 2025-06-29 07:01 | W.PN.HOSP.TC ---
Today's Communication/Plan
-
PCR testing for hepatitis C antibody which is reactive, further testing for acute or chronic hep C hepatitis.
Monitor CBC
firoriset for headache if it is required in future.
Assessment / Plan
Assessment / Plan
30-year-old male with past medical history of polysubstance abuse, CHF, hypertension presented to the ED in police custody from [facility] for evaluation of seizure.
Vitals: Tmax 98.3, GA 70, BP 127/70, RR 18, SaO2 99 at room air.
Heam:
Chemistry:
Urine toxicology results positive for urine buprenorphine, methadone, benzodiazepines,
levetiracetam results are still pending
# Polysubstance abuse induce seizure :
WBC normal, afebrile, similar episodes in the past, recent drug intake.
Methadone long-acting administration for opioid withdrawal. COWS scale
Urine toxicology results positive for urine buprenorphine, methadone, benzodiazepines,
levetiracetam results are still pending
No need to follow up MSAS scale by given negative alcohol withdrawal urine screen.
cows scale less than 5, methadone maintenance, subutex on hold
Currently received Keppra 1000 mg, monitor Keppra serum level.
as needed benzodiazepines medication.
Administer gabapentin 800 mg , folic acid, thiamine
Called [facility] and discussed regards his medications history at the facility--he was taking Wellbutrin 75 mg, 16 mg of buprenorphine previously, methadone currently he was not taking at facility.
Patient kept on telemetry and currently his QT interval 473 improved when comparing with yesterday by given the methadone administration.
EKG showed normal sinus rhythm with sinus arrhythmia, no significant
EEG today was normal.
Psychiatrist consultation recommended for Lamictal by given his history of seizure and mood stabilization. And neurologist agreed with the plan by starting 25 mg twice a day and gradually increase to 100 mg twice a day. However today morning
patient had seizure episodes and switched to lacosamide 200 mg IV stat followed by 100 mg 12 hourly scheduled.
Neurologist consulted: increased the dosage of Keppra 1000 mg twice a day, gabapentin 800 mg 3 times daily, and recommended to change home bupropion to another antidepressant because of low seizure threshold.
Recommended for psychiatry consult, seizure precautions including no driving for 6 months and reporting to the [employer] as per law.
Advised to compliance with the medications, follow-up with neurology outpatient in 4 to 6 weeks after the discharge.
children's service worker consult
Overdose education.
# Rhabdomyolysis secondary to SEIZURES:
Labs: WBC 8.4, hemoglobin 15.2--17 today,
Potassium 5.4, blood glucose 108 high, calcium 10.5 high, bun 15, creatinine 0.8, LFTs elevated, creatinine kinase 6190 high
Potassium binder administered for hyperkalemia.
Causes for rhabdomyolysis includes traumatic, mechanical injury, prolonged immobilization, seizures, wrist strain, surgery, drug abuse, sepsis, electrolyte disorders, heat exposure.
However in this patient he has a history of seizure
Currently on cerebella EEG today showed no evidence of status epilepticus.
CK : 6190----970 high--431 high, IV fluids he is receiving.
Goal is to keep creatinine kinase less than 500.
Tylenol as needed for his headache and pain
Avoid CONTRAST, NSAIDS By given his high CPK level.
Follow-up on his ck level until it goes down to 500-, until that continue IV fluids and follow-up with RFT's
# Abnormal liver function test:
Secondary to hepatitis C positive (infection source), drug abuse
Hepatitis B IgM antibody negative unimmunized,
Order hepatitis panel but given his unimmunized status
#Hepatitis Panel:
Hep A Ag& Ab negative,
hepatitis B antibody indeterminate, hep B core antibody negative
Hep C antibody reactive,
PCR testing for hepatitis C antibody which is reactive, further testing for acute or chronic hep C hepatitis
USG abdomen on 06/27/25:
Mild diffusely increased hepatic echogenicity (probably diffuse hepatic steatosis which appears unchanged).
2. Mild biliary dilatation.
3. No sonographic evidence for cholelithiasis.
Fatty liver/alcohol induced liver disease.
Code: Full
[facility]
DVT prophylaxis: Lovenox subcutaneous
Diet: regular.
Anticipated Discharge: > 48 hours
Subjective/Interval History
-
Date of Service: June 29, 2025
While on pre-rounds around 8 AM patient was going for EEG, and discussed regards to her symptoms overnight he denied vomiting, chest, dizziness, fever, tremors, abdominal pain.
However he was experiencing nausea,COWS scale less than 5, vitals are GA 57, BP 139/77, temp 97.9, O2 96
EKG findings: QTcB Int : 479 ms yesterday night.
EEG findings normal today,
Around 10:45 AM while on the rounds Albertine context from nurse indicating the patient had 1 seizure episodes lasting for less than 5 minutes, given Ativan 2 mg stat, he was stable when we saw the patient, neurologist arrived and recommended for
adding lacosamide 200 mg IV stat, order placed. Shifted to IMU by given 2 episodes of seizure within 24 hours.
Objective Data
-
Labs:
Laboratory Results
06/29/25
06:00
WBC Pending
Hgb Pending
Hct Pending
Plt Count Pending
Sodium Pending
Potassium Pending
Chloride Pending
Carbon Dioxide Pending
BUN Pending
Creatinine Pending
Glucose Pending
Calcium Pending
Total Bilirubin Pending
AST Pending
ALT Pending
Alkaline Phosphatase Pending
Vital Signs:
Vital Signs
Temp Pulse Resp BP Pulse Ox
97.7 F 62 16 126/79 97
06/29/25 03:51 06/29/25 03:51 06/29/25 03:51 06/29/25 03:51 06/29/25 03:51
I&O
06/28/25 06/29/25 06/30/25
06:59 06:59 06:59
Intake Total 1944 / 1944 600 / 600
Output Total 450 / 450
Balance 1495 / 1495 600 / 600
Review of Systems
-
History Source: Patient
All other systems: Reviewed and negative
Physical Exam
-
General: Appears in Distress
Respiratory: Clear to Auscultation
Cardiac: Regular Rhythm and S1/S2
GI: Soft, Nontender and Nondistended
Genito-urinary: No Costovertebral Tender
Skin: Warm
Neuro: AO x 3, No Motor Deficits, Nonfocal/Grossly Intact, Central Nerve's Intact and No Sensory Deficits
Hematologic / Lymphatic: No Lymphadenopathy
Psych: Calm
[2025-06-29] MEDS: NSS 1000 IV (07:31)
[2025-06-29] MEDS: KEPPRA 1000 MG PO ×2 (07:32→19:58)
[2025-06-29] MEDS: NEURONTIN 800 MG PO ×3 (07:32→21:38)
[2025-06-29] MEDS: NICODERM TRANSDERMAL 21 MG TRANSDERM (07:32)
[2025-06-29] MEDS: CATAPRES 0.1 MG PO ×2 (07:33→19:58)
[2025-06-29] MEDS: VITAMIN D3 (cholecalciferol) 25 MCG PO (07:33)
[2025-06-29] MEDS: FOLVITE 1 MG PO (07:33)
[2025-06-29] MEDS: METHADONE 100 MG/10 ML 115 MG PO (07:37)
[2025-06-29] MEDS: COLACE PO ×2 (07:39→19:59)
[2025-06-29] MEDS: THIAMINE INJECTION IV (07:45)
--- NOTE | 2025-06-29 10:02 | EEG.RPT ---
Electroencephalogram Report
Recording
Date of EE06/29/25
Type of EEG: Routine
Length of EEG recordin minutes
Done with Video Recording: Yes
Patient Status: Inpatient
Recording Conditions: Awake and Asleep
Hyperventilation Performed: Yes
Photic Stimulation Performed: Yes
Report
Methods:
A 21- channel digital EEG was done using the 10�20 international system of electrode placement. Video was recorded. ECG was monitored.
Clinical history:
The patient is a 30 years old male with history of seizures who was on Keppra and gabapentin prior to admission.
EEG interpretation:
The posterior dominant rhythm reaches up to 11 Hz.
The background rhythm does not show any asymmetry of frequency or amplitude between the hemispheres.
Hyperventilation was performed and did not show any change.
Photic stimulation was performed and it did not show show any abnormal change.
Sleep stage II was obtained that caused slowing of the background activity.
There was no epileptiform activity seen.
Clinical correlation:
This is a normal awake and sleep state EEG. A normal EEG does not rule out the possibility of a seizure. Clinical correlation is recommended.
[2025-06-29] MEDS: ATIVAN 2 MG IV ×2 (10:40→20:54)
--- NOTE | 2025-06-29 10:40 | W.PN.UPDATE ---
Update Note
Progress Note Update
Pt seen, chart reviewed. Pt noted with a seizure late yesterday afternoon, received Ativan 2 mg. Pt feels he is still having benzo withdrawal, though no overt signs this morning. He c/o nausea and headache, after having an EEG this morning.
Discussed limited options to address his c/o seasonal depression. Reviewed the risks vs benefits of Lamictal with pt. He reports Rx Topamax was recently stopped, dose may have been 50 mg B I D. Pt awake, mildly slowed, calm and cooperative,
answering questions. No SI evident.
Imp: Polysubstance Use, including opioid, benzo. Pt c/o seasonal depression, states Wellbutrin XL was not helping lately, now stopped due to seizure risk
Rec: Consider adding Lamictal for mood-stabilization. Pt informed of the rare risk of skin reaction. Will follow.
[2025-06-29 10:52] LABS: Glucose - Point of Care 89 mg/dl (70-99)
[2025-06-29 11:17] LABS: Hematocrit 45.0 % (39.0-52.0); Hemoglobin 14.7 g/dL (13.0-18.0); Mean Corp Hgb Conc. 32.7 g/dL (33.0-37.0); Mean Corpuscular Volume 89.3 fL (80.0-94.0); Platelet Count 235 10^3/uL (130-400); Red Cell Dist. Width 13.7 % (11.5-14.5)
--- NOTE | 2025-06-29 11:21 | RR ---
A Rapid Response was called on this patient, please see Rapid Response form.
patient found having a tonic clonic seiuzure. This RN administered 2mg IV ativan. RR called due to patient seizing over 4 min. VS remained stable. tele remained NSR. Labs drawn. Midline placed in R arm. Report called and given to IMU patient
transfered by ICU RR team to [id number]
--- NOTE | 2025-06-29 11:54 | CM ---
I.A: Completed By KELSEY Rome. Patient unable to answer questions due to withdrawing and is under police custody.
Hospital records state that the patient is 30, here for seizure disorder, polysubstance abuse, primary hypertension that presented to the emergency department in police custody from [facility] after a witnessed seizure event. Patient was recently at
[facility] for polysubstance abuse (dexmedetomidine, fentanyl, alcohol, benzodiazepines) where he states he was continuing to use drugs. At some point was arrested and transferred to [facility] and during the transfer was found to have a 2-minute
long tonic-clonic episode, also severely withdrawing.
CM will see if can obtain prior level of living. Consult in to Case Management for substance abuse resources, but cannot provide if under custody. PLAN: Return to [facility] when ready.
[2025-06-29 11:55] LABS: ALT (SGPT) 32 U/L (0-50); AST (SGOT) 33 U/L (17-59); Albumin 4.5 g/dl (3.5-5.0); Alkaline Phosphatase 80 U/L (38-126); Blood Urea Nitrogen 9 mg/dl (9-20); Calcium 9.6 mg/dl (8.4-10.2); Carbon Dioxide 29 mmol/L (22-30); Chloride 104 mmol/L (98-107); Estimated Creatinine Clearance 117 ml/min; Glucose 99 mg/dl (70-99); Potassium 4.4 mmol/L (3.5-5.1); Sodium 137 mmol/L (135-145); Total Protein 7.6 g/dl (6.3-8.2); eGFR > 60.00
--- NOTE | 2025-06-29 13:15 | PTCARENOTE ---
recieved pt from [facility] s/p seizure. ativan given by floor nurse. no seizure activity at present. pt awakens to voice. sleeping when undisturbed. see nursing assessment and worlklist. sinus kathya on monitor. sat 97 on room air.
--- NOTE | 2025-06-29 14:17 | W.PN.NEURO.1 ---
Today's Communication / Plan
-
Today, the patient was reported to have witnessed seizure. The patient was loaded with IV lacosamide 200 mg x 1 and he was started on IV lacosamide 100 mg twice a day. The patient will continue to be on Keppra 1000 mg twice a day and gabapentin
800 mg 3 times a day.
After the seizures the patient is now able to speak clearly however he appears to be little confused. He has antigravity strength in all 4 extremities and is able to follow simple verbal commands well.
. EEG was done today which is normal.
. Psychiatry has seen the patient regarding the increased risk of seizures with Wellbutrin, which has been stopped. Psychiatry has recommended Lamictal due to its mood stabilizing effect and some antidepressant effect.
. The patient has an opioid use disorder who is on methadone due to substance abuse. For now is going to be on home methadone as maintenance therapy and may transition methadone to Subutex to minimize the risk of a seizure.
. Seizure precautions including no driving for 6 months and [facility]
Subjective/Objective
Subjective Data
Date of Service: June 29, 2025
30-year-old male with a past medical history of seizure disorder, polysubstance abuse, primary hypertension that presented to the emergency department in police custody from [facility] after a witnessed seizure event. Patient was recently at [facility] for polysubstance abuse (dexmedetomidine, fentanyl, alcohol, benzodiazepines) where he states he was continuing to use drugs. At some point he was arrested and transferred from [facility] to [facility] and during the transfer was found to have a
2-minute long tonic-clonic episode with reported postictal period subsequently. Was sent to the ED at that time. The patient says that his tongue feels sore on the left side and he also gives history of urinary incontinence.
Patient likely had a breakthrough seizure and the cause was likely that he missed Keppra and gabapentin doses over the last 2 days [employer] as per patient.
Today, the patient was reported to have witnessed seizure. The patient was loaded with IV lacosamide 200 mg x 1 and he was started on IV lacosamide 100 mg twice a day. The patient will continue to be on Keppra 1000 mg twice a day and gabapentin
800 mg 3 times a day.
After the seizures the patient is now able to speak clearly however he appears to be little confused. He has antigravity strength in all 4 extremities and is able to follow simple verbal commands well.
. EEG was done today which is normal.
. Psychiatry has seen the patient regarding the increased risk of seizures with Wellbutrin, which has been stopped. Psychiatry has recommended Lamictal due to its mood stabilizing effect and some antidepressant effect.
. The patient has an opioid use disorder who is on methadone due to substance abuse. For now is going to be on home methadone as maintenance therapy and may transition methadone to Subutex to minimize the risk of a seizure.
. Seizure precautions including no driving for 6 months and [facility]
Discussed with the primary team.
Objective Data
Vital Signs
Temp Pulse Resp BP Pulse Ox
36.7 C 62 11 123/84 94
06/29/25 12:20 06/29/25 13:00 06/29/25 13:00 06/29/25 12:00 06/29/25 13:00
Lab Results
06/29/25 11:09
06/29/25 11:09
Sodium 137 mmol/L (135-145) 06/29/25 11:09
Potassium 4.4 mmol/L (3.5-5.1) 06/29/25 11:09
BUN 9 mg/dl (9-20) 06/29/25 11:09
Glucose 99 mg/dl (70-99) 06/29/25 11:09
Calcium 9.6 mg/dl (8.4-10.2) 06/29/25 11:09
Phosphorus 3.6 mg/dl (2.5-4.5) 06/27/25 19:38
Ur Buprenorphine Positive (Negative) H 06/27/25 18:42
Patient Allergies
latex Allergy (Verified 02/03/21 01:38)
Unknown
[2025-06-29] MEDS: VIMPAT 200 MG IV (16:09)
[2025-06-29] MEDS: LOVENOX 40 MG SC (16:10)
[2025-06-29] MEDS: THIAMINE INJECTION 200 MG IV (16:10)
[2025-06-29] MEDS: MOTRIN 400 MG PO (16:35)
[2025-06-29] MEDS: NICORETTE 4 MG PO (16:36)
--- NOTE | 2025-06-29 19:00 | PTCARENOTE ---
Received pt frm previous RN;pt accompanied by two correctional officers. pt drowsy yet responds promptly when prompted. VSS, pt noted to slightly tremulous; MSAS score 1. Will continue plan of care. Call valerio within reach.
[2025-06-29] MEDS: FLUSH (NSS) 2 FLUSH IV (20:54)
--- NOTE | 2025-06-29 21:07 | PTCARENOTE ---
At 2049, this nurse was called to the pt's room by correctional officers due to observed seizure-like activity. Pt noted with tremulous hands and non-purposeful movements. Administered 2 mg IV Ativan per protocol. Seizure activity continued until
approximately 2100. Vital signs monitored throughout. Pt transported to CT for further evaluation. Transported with two correctional officers, PCT and RN.
--- NOTE | 2025-06-29 21:07 | PTCARENOTE ---
At 2049, this nurse was called to the pt's room by correctional officers due to observed seizure-like activity. Pt noted with tremulous hands and non-purposeful movements. Administered 2 mg IV Ativan per protocol. Seizure activity continued until
approximately 0900. Vital signs monitored throughout. Pt transported to CT for further evaluation. Transported with two correctional officers, PCT and RN.
[2025-06-30] VITALS (15 sets, daily range): BP systolic 108–175; BP diastolic 60–111
[2025-06-30] MEDS: THIAMINE INJECTION 200 MG IV ×3 (00:32→16:20)
[2025-06-30] MEDS: NICORETTE 4 MG PO ×2 (02:46→14:20)
[2025-06-30 03:35] LABS: Hematocrit 41.9 % (39.0-52.0); Hemoglobin 14.0 g/dL (13.0-18.0); Mean Corp Hgb Conc. 33.4 g/dL (33.0-37.0); Mean Corpuscular Volume 87.7 fL (80.0-94.0); Platelet Count 238 10^3/uL (130-400); Red Cell Dist. Width 13.4 % (11.5-14.5)
[2025-06-30 03:52] LABS: ALT (SGPT) 30 U/L (0-50); AST (SGOT) 30 U/L (17-59); Albumin 4.1 g/dl (3.5-5.0); Alkaline Phosphatase 68 U/L (38-126); Blood Urea Nitrogen 9 mg/dl (9-20); Calcium 9.2 mg/dl (8.4-10.2); Carbon Dioxide 27 mmol/L (22-30); Chloride 105 mmol/L (98-107); Estimated Creatinine Clearance > 125 ml/min; Glucose 116 mg/dl (70-99); Potassium 4.0 mmol/L (3.5-5.1); Sodium 137 mmol/L (135-145); Total Protein 6.9 g/dl (6.3-8.2); eGFR > 60.00
[2025-06-30] MEDS: VIMPAT 100 MG IV ×2 (05:22→19:31)
--- NOTE | 2025-06-30 05:57 | PTCARENOTE ---
Pt had midline placed yesterday. Pt keeps pulling at midline and uncapping lumen after multiple requests not to. Guard placed 2nd shackle to left wrist. Homa VALDES TT'd and made aware.
--- NOTE | 2025-06-30 07:15 | PTCARENOTE ---
report received. aaox3 w/ flat affect. nsr. vss. cristian present. pt calm and cooperative. pt updated on plan of care. will monitor.
--- NOTE | 2025-06-30 07:21 | W.PN.HOSP.TC ---
Today's Communication/Plan
-
Monitor CBC, CMP
Seizure precautions
Start Lamictal
Continue methadone to home dosage 10 mg/ 115 mg.
Assessment / Plan
Assessment / Plan
30-year-old male with past medical history of polysubstance abuse, CHF, hypertension presented to the ED in police custody from [facility] for evaluation of seizure.
Vitals: Tmax 98.3, MS 70, BP 127/70, RR 18, SaO2 99 at room air.
Urine toxicology results positive for urine buprenorphine, methadone, benzodiazepines,
# Polysubstance abuse induce seizure :
Lab results:
Levetiracetam 10.4 within therapeutic range.
Methadone long-acting administration for opioid withdrawal. COWS scale
Urine toxicology results positive for urine buprenorphine, methadone, benzodiazepines,
levetiracetam results are still pending
No need to follow up MSAS scale by given negative alcohol withdrawal urine screen.
cows scale less than 5, methadone maintenance, subutex on hold
Currently received Keppra 1000 mg, monitor Keppra serum level.
as needed benzodiazepines medication.
Administer gabapentin 800 mg , folic acid, thiamine
Called [facility] and discussed regards his medications history at the facility--he was taking Wellbutrin 75 mg, 16 mg of buprenorphine previously, methadone currently he was not taking at facility.
Patient kept on telemetry and currently his QT interval 473 improved when comparing with yesterday by given the methadone administration.
EKG showed normal sinus rhythm with sinus arrhythmia, no significant
EEG today was normal.
On 06/29/2025: CT scan without contrast showed no evidence of acute intracranial abnormality.
Psychiatrist consultation recommended for Lamictal by given his history of seizure and mood stabilization. And neurologist agreed with the plan by starting 25 mg twice a day and gradually increase to 100 mg twice a day. However today morning
patient had seizure episodes and switched to lacosamide 200 mg IV stat followed by 100 mg 12 hourly scheduled. Explained to the patient for the addition of Lamictal which might cause the side effect of skin rashes.
Neurologist consulted: increased the dosage of Keppra 1000 mg twice a day, gabapentin 800 mg 3 times daily, and recommended to change home bupropion to another antidepressant because of low seizure threshold.
Currently neurologist agreed with continuing Lamictal, however there is a risk for methadone induced Seizure recommended to continue with home methadone as maintenance therapy and while on discharge transition to Subutex to minimize the risk of
seizure in future.
Recommended for psychiatry consult, seizure precautions including no driving for 6 months and reporting to the [employer] as per law.
Advised to compliance with the medications, follow-up with neurology outpatient in 4 to 6 weeks after the discharge.
fabric worker supervisor consult
Overdose education.
# Rhabdomyolysis secondary to SEIZURES:
Labs: WBC 8.4, hemoglobin 15.2--17 today,
Potassium 5.4, blood glucose 108 high, calcium 10.5 high, bun 15, creatinine 0.8, LFTs elevated, creatinine kinase 6190 high
Potassium binder administered for hyperkalemia.
Causes for rhabdomyolysis includes traumatic, mechanical injury, prolonged immobilization, seizures, wrist strain, surgery, drug abuse, sepsis, electrolyte disorders, heat exposure.
However in this patient he has a history of seizure
Currently on cerebella EEG today showed no evidence of status epilepticus.
CK : 6190----970 high-- 431--259 today hold IV fluids because the patient is tolerating food.
Goal is to keep creatinine kinase less than 500.
Tylenol as needed for his headache and pain
Avoid CONTRAST, NSAIDS By given his high CPK level.
# Abnormal liver function test:
Secondary to hepatitis C positive (infection source), drug abuse
Hepatitis B IgM antibody negative unimmunized,
Order hepatitis panel but given his unimmunized status
#Hepatitis Panel:
Hep A Ag& Ab negative,
hepatitis B antibody indeterminate, hep B core antibody negative
Hep C antibody reactive,
PCR testing for hepatitis C antibody which is reactive, further testing for acute or chronic hep C hepatitis
[facility] abdomen on 06/27/25:
Mild diffusely increased hepatic echogenicity (probably diffuse hepatic steatosis which appears unchanged).
2. Mild biliary dilatation.
3. No sonographic evidence for cholelithiasis.
Fatty liver/alcohol induced liver disease.
Code: Full
[facility]
DVT prophylaxis: Lovenox subcutaneous
Diet: regular.
Anticipated Discharge: 24 - 48 hours
Subjective/Interval History
-
Date of Service: June 30, 2025
Overnight he has concern for lacosamide which is new for him and it is making him nauseous and anger he does not want to take it. However he is stable, vitals stable with blood pressure 131/96, MS 63, RR 10, temperature 97.9, O2 sat 98. Denied
headache, dizzy, palpitation, chest pain.
Objective Data
-
Labs:
Laboratory Results
06/30/25
03:07
WBC 4.6 L
Hgb 14.0
Hct 41.9
Plt Count 238
Sodium 137
Potassium 4.0
Chloride 105
Carbon Dioxide 27
BUN 9
Creatinine 0.7
Glucose 116 H
Calcium 9.2
Total Bilirubin 0.4
AST 30
ALT 30
Alkaline Phosphatase 68
Vital Signs:
Vital Signs
Temp Pulse Resp BP Pulse Ox
97.8 F 63 10 131/96 98
06/30/25 02:57 06/30/25 04:00 06/30/25 04:00 06/30/25 04:00 06/30/25 04:00
I&O
06/29/25 06/30/25 07/01/25
06:59 06:59 06:59
Intake Total 600 / 600 2040 / 2040
Output Total 1200 / 1200
Balance 600 / 600 840 / 840
Review of Systems
-
History Source: Patient
All other systems: Reviewed and negative
Physical Exam
-
General: No Apparent Distress
HEENT: PERRLA
Respiratory: Clear to Auscultation
Cardiac: Regular Rhythm and S1/S2
GI: Soft, Nondistended and Normal Bowel Sounds
Genito-urinary: No Costovertebral Tender
Musculoskeletal: No Clubbing, No Cyanosis and No Edema
Skin: Warm
Neuro: AO x 3, No Motor Deficits, Nonfocal/Grossly Intact, Central Nerve's Intact, No Sensory Deficits and DTR's Intact & Symmetrica
Hematologic / Lymphatic: Other
Psych: Calm
[2025-06-30] MEDS: CATAPRES 0.1 MG PO ×2 (07:43→19:29)
[2025-06-30] MEDS: KEPPRA 1000 MG PO ×2 (07:43→19:29)
[2025-06-30] MEDS: NEURONTIN 800 MG PO ×3 (07:43→21:14)
[2025-06-30] MEDS: FOLVITE 1 MG PO (07:43)
[2025-06-30] MEDS: VITAMIN D3 (cholecalciferol) 25 MCG PO (07:43)
[2025-06-30] MEDS: NICODERM TRANSDERMAL 21 MG TRANSDERM (07:44)
[2025-06-30] MEDS: COLACE PO ×2 (07:44→21:13)
[2025-06-30] MEDS: METHADONE 100 MG/10 ML 115 MG PO (07:44)
[2025-06-30] MEDS: NSS 1000 IV (08:03)
--- NOTE | 2025-06-30 14:11 | W.PN.UPDATE ---
Update Note
Progress Note Update
Pt seen, resting in bed, initially asleep, able to wake to verbal stimulus. Pt drowsy, but oriented, coherent. Pt had another seizure, was transferred to the IMU. Pt was placed on Lacosamide, states he thinks it might have made him confused and
agitated. No agitation at present. Reviewed feasibility of trying Lamictal; has risks due to overlapping mechanism with Lacosamide.
Imp/Rec: Polysubstance Use, including opioid, benzo. Pt c/o seasonal depression, Wellbutrin XL was stopped due to seizure risk
Rec: Would hold off trying Lamictal while pt is on Lacosamide. Will discuss alternatives for depression when pt is more medically stable
Will follow.
--- NOTE | 2025-06-30 16:41 | W.PN.NEURO.1 ---
Today's Communication / Plan
-
The patient is on IV Lacosamide 100 mg twice a day. The patient is also on Keppra 1000 mg twice a day and gabapentin 800 mg 3 times a day.
Today, on neurologic examination the patient is alert and oriented x 3 speech is clear and does not have any gross focal weakness.
. EEG was normal.
. Psychiatry has seen the patient regarding the increased risk of seizures with Wellbutrin, which has been stopped. Psychiatry has recommended Lamictal due to its mood stabilizing effect and some antidepressant effect.
. The patient has an opioid use disorder who is on methadone due to substance abuse. For now is going to be on home methadone as maintenance therapy and may transition methadone to Subutex to minimize the risk of a seizure.
. Seizure precautions including no driving for 6 months and needs to be reported to the [facility] as per law.
. The patient is on IV Lacosamide 100 mg twice a day. The patient is also on Keppra 1000 mg twice a day and gabapentin 800 mg 3 times a day.
I had a discussion with the patient regarding assessment and management plan and he verbalized understanding of our discussion.
Follow-up with neurology as an outpatient in about 4 weeks.
Will sign off. Please call if you have any question.
Subjective/Objective
Subjective Data
Date of Service: June 30, 2025
Today, the patient is alert and is able to communicate very well. There was no reported seizure since yesterday.
The patient is on IV Lacosamide 100 mg twice a day. The patient is also on Keppra 1000 mg twice a day and gabapentin 800 mg 3 times a day.
Today, on neurologic examination the patient is alert and oriented x 3 speech is clear and does not have any gross focal weakness.
. EEG was normal.
. Psychiatry has seen the patient regarding the increased risk of seizures with Wellbutrin, which has been stopped. Psychiatry has recommended Lamictal due to its mood stabilizing effect and some antidepressant effect.
. The patient has an opioid use disorder who is on methadone due to substance abuse. For now is going to be on home methadone as maintenance therapy and may transition methadone to Subutex to minimize the risk of a seizure.
. Seizure precautions including no driving for 6 months and needs to be reported to the [employer] as per law.
. Continue current medications
I had a discussion with the patient regarding assessment and management plan and he verbalized understanding of our discussion.
Objective Data
Vital Signs
Temp Pulse Resp BP Pulse Ox
36.6 C 50 7 118/78 98
06/30/25 07:30 06/30/25 16:15 06/30/25 16:15 06/30/25 16:00 06/30/25 04:15
Lab Results
06/30/25 03:07
06/30/25 03:07
Sodium 137 mmol/L (135-145) 06/30/25 03:07
Potassium 4.0 mmol/L (3.5-5.1) 06/30/25 03:07
BUN 9 mg/dl (9-20) 06/30/25 03:07
Glucose 116 mg/dl (70-99) H 06/30/25 03:07
Calcium 9.2 mg/dl (8.4-10.2) 06/30/25 03:07
Phosphorus 3.6 mg/dl (2.5-4.5) 06/27/25 19:38
Ur Buprenorphine Positive (Negative) H 06/27/25 18:42
Patient Allergies
latex Allergy (Verified 02/03/21 01:38)
Unknown
Medications
-
Active Medications
Generic Name Dose Route Start Last Admin
Trade Name Freq PRN Reason Stop Dose Admin
Acetaminophen 650 mg 06/27/25 15:13 06/28/25 20:56
Acetaminophen 325 Mg Tablet PO 07/25/25 15:12 650 mg
Q4HPRN PRN Administration
mild pain
Al Hydrox/Mg Hydrox/Simethicone 30 ml 06/27/25 15:13
Mag/Al/Simethicone Suspension 30 Ml Cup PO 07/25/25 15:12
QIDPRN PRN
heartburn
Benzocaine 0 applic 06/27/25 19:37
Benzocaine 20% Oral Anesthetic Clifford Can TOPICAL 07/25/25 19:36
BIDPRN PRN
mouth pain
Benzocaine/Menthol 1 lozenge 06/27/25 17:39 06/27/25 20:22
Benzocaine/Menthol Lozenge PO 07/25/25 15:40 1 lozenge
Q4HPRN PRN Administration
sore throat
Chlorpromazine HCl 10 mg 06/27/25 15:13
Chlorpromazine 10 Mg Tablet PO 07/25/25 15:12
Q6HPRN PRN
hiccups
Cholecalciferol 25 mcg 06/28/25 08:00 06/30/25 07:43
Cholecalciferol (Vitamin D3) 25 Mcg Tablet (1,000 Units) PO 07/26/25 07:59 25 mcg
DAILY DALIA Administration
Clonidine HCl 0.3 mg 06/28/25 08:00 06/28/25 07:50
Clonidine 0.3 Mg Patch TRANSDERM 07/26/25 07:59 0.3 mg
TH DALIA Administration
Clonidine HCl 0.1 mg 06/27/25 20:00 06/30/25 07:43
Clonidine 0.1 Mg Tablet PO 07/25/25 19:59 0.1 mg
BID DALIA Administration
Docusate Sodium 100 mg 06/27/25 20:00 06/30/25 07:44
Docusate Sodium 100 Mg Capsule PO 07/25/25 19:59 Not Given
BID DALIA
Enoxaparin Sodium 40 mg 06/27/25 18:00 06/29/25 16:10
Enoxaparin Sodium 40 Mg/0.4 Ml Syringe SC 07/25/25 17:59 40 mg
QPM DALIA Administration
Folic Acid 1 mg 06/28/25 08:00 06/30/25 07:43
Folic Acid 1 Mg Tablet PO 07/26/25 07:59 1 mg
DAILY DALIA Administration
Gabapentin 800 mg 06/27/25 16:00 06/30/25 16:20
Gabapentin 400 Mg Capsule PO 07/25/25 15:59 800 mg
TID DALIA Administration
Guaifenesin 1,200 mg 06/27/25 15:13
Guaifenesin 600 Mg Extended Release Tablet PO 07/25/25 15:12
BIDPRN PRN
cough
Folic Acid 1 mg/ Sodium 50.2 mls @ 200.8 mls/hr 06/28/25 06:00
Chloride IV 07/26/25 05:59
DAILYPRN PRN
if NPO
Ibuprofen 400 mg 06/27/25 15:13 06/29/25 16:35
Ibuprofen 400 Mg Tablet PO 07/25/25 15:12 400 mg
TIDPRN PRN Administration
mild pain
Lacosamide 100 mg 06/30/25 06:00 06/30/25 05:22
Lacosamide (10 Mg/Ml) 200 Mg/20 Ml Vial IV 07/14/25 05:59 100 mg
Q12 DALIA Administration
Levetiracetam 1,000 mg 06/27/25 20:00 06/30/25 07:43
Levetiracetam 500 Mg Regular Release Tablet PO 07/25/25 19:59 1,000 mg
BID DALIA Administration
Lorazepam 1 mg 06/27/25 18:18 06/29/25 00:07
Lorazepam 1 Mg Tablet PO 07/25/25 18:17 1 mg
Q2HPRN PRN Administration
MSAS 5-7
Lorazepam 1 mg 06/27/25 18:18
Lorazepam 2 Mg/Ml Vial IV 07/25/25 18:17
Q1HPRN PRN
MSAS 8-11
Lorazepam 2 mg 06/27/25 18:18
Lorazepam 2 Mg/Ml Vial IV 07/25/25 18:17
Q1HPRN PRN
MSAS > 11
Lorazepam 2 mg 06/28/25 15:51 06/29/25 20:54
Lorazepam 2 Mg/Ml Vial IV 07/26/25 15:49 2 mg
Q4HPRN PRN Administration
seizures
Magnesium Hydroxide 30 ml 06/27/25 15:13
Milk Of Magnesia 30 Ml Cup PO 07/25/25 15:12
DAILYPRN PRN
constipation
Methadone HCl 115 mg 06/28/25 08:00 06/30/25 07:44
Methadone Oral Liquid (100 Mg/10 Ml) Cup PO 07/12/25 07:59 115 mg
DAILY DALIA Administration
Nicotine 21 mg 06/28/25 08:00 06/30/25 07:44
Nicotine 21 Mg Patch TRANSDERM 07/26/25 07:59 21 mg
DAILY DALIA Administration
Nicotine Polacrilex 4 mg 06/27/25 19:38 06/30/25 14:20
Nicotine 2 Mg Chewing Gum PO 07/25/25 19:37 4 mg
Q2HPRN PRN Administration
nicotine craving
Sodium Chloride 0 flush 06/27/25 16:00 06/29/25 20:54
Sodium Chloride 0.9% (Flush) Syringe IV 07/25/25 15:59 2 flush
PER PROTOCOL DALIA Administration
Sodium Chloride 0 ml 06/27/25 18:18
Sodium Chloride 0.9% (Preservative Free) 10 Ml Vial IV 07/25/25 18:17
PRN PRN
To dilute IV Ativan
Protocol
Thiamine HCl 100 mg 07/01/25 08:00
Thiamine 100 Mg Tablet PO 07/29/25 07:59
BID DALIA
Triamcinolone Acetonide 0 applic 06/27/25 20:00 06/30/25 08:03
Triamcinolone Acetonide 0.5% (Cream) 15 Gram Tube TOPICAL 07/25/25 19:59 1 applic
BID DALIA Administration
Home Medications
�Medication �Instructions �Recorded
acetaminophen 325 mg tablet 650 mg PO Q4HPRN PRN mild pain 06/27/25
(Tylenol)
aluminum-mag hydroxide-simethicone 30 ml PO QIDPRN PRN heartburn 06/27/25
200 mg-200 mg-20 mg/5 mL oral susp
benzocaine 15 mg-menthol 2.6 mg 1 rika mucous membrane Q4HPRN PRN 06/27/25
lozenges (Cepacol Sore Throat sore throat
(benzocaine-menthol))
benzocaine 20 % mucosal gel 1 applic mucous membrane BIDPRN 06/27/25
PRN mouth pain
bupropion HCl 150 mg 24 hr tablet, 150 mg PO DAILY Mental 06/27/25
extended release (Wellbutrin XL) Health/Anxiety
chlorpromazine 10 mg tablet 10 mg PO Q6HPRN PRN hiccups 06/27/25
cholecalciferol (vitamin D3) 25 25 mcg PO DAILY Supplement 06/27/25
mcg (1,000 unit) tablet (Vitamin
D3)
clindamycin HCl 150 mg capsule 300 mg PO Q6H Infection 06/27/25
clonidine 0.3 mg/24 hr weekly 1 patch transdermal TH 06/27/25
transdermal patch
clonidine HCl 0.1 mg tablet 0.1 mg PO BID 06/27/25
docusate sodium 100 mg capsule 100 mg PO BID Constipation 06/27/25
(Colace)
eucalyptus-menthol oral mucosal 3.1 mg mucous membrane Q4HPRN PRN 06/27/25
lozenge cough
folic acid 1 mg tablet 1 mg PO DAILY Supplement 06/27/25
gabapentin 800 mg tablet 800 mg PO TID Pain 06/27/25
guaifenesin 600 mg tablet, 1,200 mg PO BIDPRN PRN cough 06/27/25
extended release 12 hr
ibuprofen 400 mg tablet 400 mg PO TIDPRN PRN mild pain 06/27/25
levetiracetam 500 mg tablet 500 mg PO BID Seizures 06/27/25
(Keppra)
magnesium hydroxide 400 mg/5 mL 2,400 mg PO DAILYPRN PRN 06/27/25
oral suspension (Milk of Magnesia) constipation
methadone 10 mg tablet 115 mg PO DAILY OPIOID WITHDRAWAL 06/27/25
nicotine (polacrilex) 4 mg buccal 4 mg buccal Q2HPRN PRN nicotine 06/27/25
lozenge craving
nicotine 21 mg/24 hr daily 1 patch transdermal DAILY Smoking 06/27/25
transdermal patch Cessation
triamcinolone acetonide 0.5 % 1 applic topical BID psoriasis 06/27/25
topical cream
[2025-06-30] MEDS: LOVENOX 40 MG SC (17:39)
[2025-06-30] MEDS: TYLENOL 650 MG PO (17:43)
[2025-06-30] MEDS: ATIVAN 2 MG IV (19:36)
--- NOTE | 2025-06-30 20:00 | PTCARENOTE ---
This RN entered the pt's room for initial assessment and medication administration per protocol. Pt was coherent, alert, and oriented. BP noted to be elevated at 175/101, with pt denying any pain or discomfort. Approximately five minutes into the
assessment, this RN observed [id number].Pt exhibiting tremulous hands accompanied by non-purposeful motor activity. Seizure protocol initiated, and 2 mg IV Ativan was administered as ordered. Seizure activity began at 1935 and continued
until approximately 1945. Vital signs monitored throughout the event. Will continue with the current plan of care.
[2025-07-01] VITALS (17 sets, daily range): BP systolic 107–153; BP diastolic 57–107
[2025-07-01] MEDS: TYLENOL 650 MG PO ×3 (03:17→22:05)
[2025-07-01 03:25] LABS: Hematocrit 43.5 % (39.0-52.0); Hemoglobin 14.4 g/dL (13.0-18.0); Mean Corp Hgb Conc. 33.1 g/dL (33.0-37.0); Mean Corpuscular Volume 86.1 fL (80.0-94.0); Platelet Count 250 10^3/uL (130-400); Red Cell Dist. Width 13.4 % (11.5-14.5)
[2025-07-01 03:44] LABS: ALT (SGPT) 31 U/L (0-50); AST (SGOT) 28 U/L (17-59); Albumin 4.1 g/dl (3.5-5.0); Alkaline Phosphatase 72 U/L (38-126); Blood Urea Nitrogen 8 mg/dl (9-20); Calcium 9.4 mg/dl (8.4-10.2); Carbon Dioxide 28 mmol/L (22-30); Chloride 104 mmol/L (98-107); Estimated Creatinine Clearance 117 ml/min; Glucose 129 mg/dl (70-99); Potassium 3.8 mmol/L (3.5-5.1); Sodium 137 mmol/L (135-145); Total Protein 7.1 g/dl (6.3-8.2); eGFR > 60.00
[2025-07-01] MEDS: NICORETTE 4 MG PO ×4 (04:04→22:06)
--- NOTE | 2025-07-01 05:27 | PTCARENOTE ---
Pt noted to have intermittent episodes of bradycardia 40-50's during the shift.Respiratory rate fluctuated between 7-12 bpm, with periods of shallow breathing observed,pt is arousable. BP remained stable t/o monitoring. JUAN Bob TT'd and made
aware. No further orders. Plan of care ongoing.
--- NOTE | 2025-07-01 07:21 | W.PN.HOSP.TC ---
Today's Communication/Plan
-
Methadone dosage reduced to 10% currently he switched from 115--100 mg
keep him in QT monitoring
Tomorrow switch to med/surge floors if he stable.
Assessment / Plan
Assessment / Plan
30-year-old male with past medical history of polysubstance abuse, CHF, hypertension presented to the ED in police custody from [facility] for evaluation of seizure.
Urine toxicology results positive for urine buprenorphine, methadone, benzodiazepines,
# Polysubstance abuse induce seizure :
Vitals: DC 46, BP 107/66, MAP 79, SaO2 98.
blood glucose 129 high.
Levetiracetam 10.4 within therapeutic range.
Methadone long-acting administration for opioid withdrawal. COWS scale
Urine toxicology results positive for urine buprenorphine, methadone, benzodiazepines,
levetiracetam results are still pending
No need to follow up MSAS scale by given negative alcohol withdrawal urine screen.
cows scale less than 5, methadone maintenance, subutex on hold
Currently received Keppra 1000 mg, monitor Keppra serum level.
as needed benzodiazepines medication.
Administer gabapentin 800 mg , folic acid, thiamine
Called [facility] and discussed regards his medications history at the facility--he was taking Wellbutrin 75 mg, 16 mg of buprenorphine previously, methadone currently he was not taking at facility.
Patient kept on telemetry and currently his QT interval 473 improved when comparing with yesterday by given the methadone administration.
EKG showed normal sinus rhythm with sinus arrhythmia, no significant
EEG today was normal.
On 06/29/2025: CT scan without contrast showed no evidence of acute intracranial abnormality.
Psychiatrist consulted with recommendation of hold off trying Lamictal while patient is on lacosamide due to overlapping mechanisms of Lamictal with lacosamide for confusion and agitation.
Neurologist consulted: increased the dosage of Keppra 1000 mg twice a day, gabapentin 800 mg 3 times daily, and recommended to change home bupropion to another antidepressant because of low seizure threshold.
Currently neurologist agreed with continuing Lamictal, however there is a risk for methadone induced Seizure recommended to continue with home methadone as maintenance therapy and while on discharge transition to Subutex to minimize the risk of
seizure in future.
Recommended for psychiatry consult, seizure precautions including no driving for 6 months and reporting to the [employer] as per law.
Advised to compliance with the medications, follow-up with neurology outpatient in 4 to 6 weeks after the discharge.
parks and recreation worker consult
Overdose education.
Methadone dosage reduced to 200 mg today
# Rhabdomyolysis secondary to SEIZURES:
Labs: WBC 8.4, hemoglobin 15.2--17 today,
Potassium 5.4, blood glucose 108 high, calcium 10.5 high, bun 15, creatinine 0.8, LFTs elevated, creatinine kinase 6190 high
Potassium binder administered for hyperkalemia.
Causes for rhabdomyolysis includes traumatic, mechanical injury, prolonged immobilization, seizures, wrist strain, surgery, drug abuse, sepsis, electrolyte disorders, heat exposure.
However in this patient he has a history of seizure
Currently on cerebella EEG today showed no evidence of status epilepticus.
CK : 6190----970 high-- 431--259---217, today hold IV fluids because the patient is tolerating food.
Goal is to keep creatinine kinase less than 500.
Tylenol as needed for his headache and pain
Avoid CONTRAST, NSAIDS By given his high CPK level.
# Abnormal liver function test:
Secondary to hepatitis C positive (infection source), drug abuse
Hepatitis B IgM antibody negative unimmunized,
Order hepatitis panel but given his unimmunized status
#Hepatitis Panel:
Hep A Ag& Ab negative,
hepatitis B antibody indeterminate, hep B core antibody negative
Hep C antibody reactive,
PCR testing for hepatitis C antibody which is reactive, further testing for acute or chronic hep C hepatitis
USG abdomen on 06/27/25:
Mild diffusely increased hepatic echogenicity (probably diffuse hepatic steatosis which appears unchanged).
2. Mild biliary dilatation.
3. No sonographic evidence for cholelithiasis.
Fatty liver/alcohol induced liver disease.
Code: Full
Disposition: Senior Living/[facility].
DVT prophylaxis: Lovenox subcutaneous
Diet: regular.
Anticipated Discharge: > 48 hours
Subjective/Interval History
-
Date of Service: July 01, 2025
Overnight he has no concern for pain, nausea, vomiting, headache, restlessness, palpitation
Telemetry result 455 QT--420msec
Objective Data
-
Labs:
Laboratory Results
07/01/25
03:09
WBC 5.4
Hgb 14.4
Hct 43.5
Plt Count 250
Sodium 137
Potassium 3.8
Chloride 104
Carbon Dioxide 28
BUN 8 L
Creatinine 0.8
Glucose 129 H
Calcium 9.4
Total Bilirubin 0.4
AST 28
ALT 31
Alkaline Phosphatase 72
Vital Signs:
Vital Signs
Temp Pulse Resp BP Pulse Ox
98.0 F 46 6 107/66 98
07/01/25 03:36 07/01/25 06:50 07/01/25 06:50 07/01/25 06:50 07/01/25 06:53
I&O
06/30/25 07/01/25 07/02/25
06:59 06:59 06:59
Intake Total 2040 / 2040 2280 / 2280
Output Total 1200 / 1200 3250 / 3250
Balance 840 / 840 -970 / -970
Review of Systems
-
History Source: Patient
All other systems: Reviewed and negative
Physical Exam
-
General: Well Developed and No Apparent Distress
Respiratory: Clear to Auscultation
Cardiac: Regular Rhythm and S1/S2
GI: Soft, Nontender and Nondistended
Genito-urinary: No Costovertebral Tender
Skin: Warm
Neuro: AO x 3
Hematologic / Lymphatic: No Lymphadenopathy
Psych: Calm
[2025-07-01] MEDS: FOLVITE 1 MG PO (09:09)
[2025-07-01] MEDS: NEURONTIN 800 MG PO ×3 (09:09→21:52)
[2025-07-01] MEDS: VITAMIN B1 100 MG PO ×2 (09:09→21:52)
[2025-07-01] MEDS: VITAMIN D3 (cholecalciferol) 25 MCG PO (09:09)
[2025-07-01] MEDS: CATAPRES 0.1 MG PO ×2 (09:09→21:50)
[2025-07-01] MEDS: METHADONE 100 MG/10 ML 115 MG PO (09:10)
[2025-07-01] MEDS: KEPPRA 1000 MG PO ×2 (09:10→21:51)
[2025-07-01] MEDS: COLACE PO ×2 (09:12→21:51)
[2025-07-01] MEDS: NICODERM TRANSDERMAL 21 MG TRANSDERM (09:13)
[2025-07-01] MEDS: VIMPAT 100 MG IV ×2 (09:14→21:51)
[2025-07-01] MEDS: ATIVAN 1 MG IV (13:27)
[2025-07-01] MEDS: NSS (PRESERVATIVE FREE) 0.5 ML IV (13:28)
[2025-07-01] MEDS: LOVENOX 40 MG SC (16:23)
--- NOTE | 2025-07-01 17:05 | PTCARENOTE ---
COWs score this am 1, 1230 c/o headache nausea and shakiness-prn cows score now 7. d/w Dr. Kothari- Stat dose IV Ativan 1 mg administered with good relief of most symptoms. Pt thankful. Currently cows score 1. Requested Tylenol and
nicotine gum with pm meds- given. Interacting appropriately asking employment questions about facility- answered to the best of my knowledge. LCTA, RA Sinus kathya 40s all day. Appetite improved alittle this pm. Forensics, guards present.
[2025-07-01] MEDS: ATIVAN 2 MG IV (19:09)
[2025-07-01] MEDS: NSS (PRESERVATIVE FREE) 10 ML IV (19:10)
--- NOTE | 2025-07-01 20:25 | PTCARENOTE ---
At change of shift approximately 1707, on duty guard came to nurses station to report possible seizure like activity. Upon assessment patient having full body tremors, fairly mild. Pt not responding to name or following at all with eyes. Pt hands
rigid and hands clenched. LUCIO Contreras notified via TT, and came to bedside, advised to give PRN 2mg Ativan, administered per order see MAR. Seizure activity continued until approximately 1721. VSS. Pt drowsy post seizure like activity, however AAOx3.
Pt states feeling 'groggy'. NSR to SB on the monitor. HR 65. Pt on RA, 97%. Pt able to take all PO medications w/o issues. Assessment and care as charted, see worklist. Pt able to make needs known. Two guards present in the room.
[2025-07-01] MEDS: MELATONIN 5 MG PO (22:51)
--- NOTE | 2025-07-01 23:04 | PTCARENOTE ---
At change of shift approximately 1906, on duty guard came to nurses station to report possible seizure like activity. Upon assessment patient having full body tremors, fairly mild. Pt not responding to name or following at all with eyes. Pt hands
rigid and hands clenched. LUCIO Contreras notified via TT, and came to bedside, advised to give PRN 2mg Ativan, administered per order see MAR. Seizure activity continued until approximately 1920. VSS. Pt drowsy post seizure like activity, however AAOx3.
Pt states feeling 'groggy'. NSR to SB on the monitor. HR 65. Pt on RA, 97%. Pt able to take all PO medications w/o issues. Assessment and care as charted, see worklist. Pt able to make needs known. Two guards present in the room.
[2025-07-02] VITALS (8 sets, daily range): BP systolic 112–150; BP diastolic 74–115
[2025-07-02] MEDS: TYLENOL 650 MG PO ×2 (05:13→21:13)
[2025-07-02 06:06] LABS: Hematocrit 43.2 % (39.0-52.0); Hemoglobin 14.7 g/dL (13.0-18.0); Mean Corp Hgb Conc. 34.0 g/dL (33.0-37.0); Mean Corpuscular Volume 85.9 fL (80.0-94.0); Platelet Count 253 10^3/uL (130-400); Red Cell Dist. Width 13.2 % (11.5-14.5)
[2025-07-02 06:09] LABS: ALT (SGPT) 33 U/L (0-50); AST (SGOT) 26 U/L (17-59); Albumin 4.2 g/dl (3.5-5.0); Alkaline Phosphatase 68 U/L (38-126); Blood Urea Nitrogen 8 mg/dl (9-20); Calcium 9.2 mg/dl (8.4-10.2); Carbon Dioxide 29 mmol/L (22-30); Chloride 100 mmol/L (98-107); Estimated Creatinine Clearance 117 ml/min; Glucose 115 mg/dl (70-99); Potassium 3.8 mmol/L (3.5-5.1); Sodium 136 mmol/L (135-145); Total Protein 7.1 g/dl (6.3-8.2); eGFR > 60.00
--- NOTE | 2025-07-02 07:00 | W.PN.HOSP.TC ---
Today's Communication/Plan
-
Lacosamide 100 mg--two 200 mg dosage increased after consulting with neurologist.
24 hours EEG order placed.
Follow-up with [facility]
Psychiatrist recommended to increase the dosage back to 115 mg for the methadone.
Assessment / Plan
Assessment / Plan
30-year-old male with past medical history of polysubstance abuse, CHF, hypertension presented to the ED in police custody from [facility] for evaluation of seizure.
Urine toxicology results positive for urine buprenorphine, methadone, benzodiazepines,
# Polysubstance abuse induce seizure :
Levetiracetam 10.4 within therapeutic range.
Methadone long-acting administration for opioid withdrawal. COWS scale today is 7 due to reduced dosage of methadone from 115 to 100 mg
Urine toxicology results positive for urine buprenorphine, methadone, benzodiazepines,
No need to follow up MSAS scale by given negative alcohol withdrawal urine screen.
cows scale less than 5, methadone maintenance, subutex on hold
Currently received Keppra 1000 mg, monitor Keppra serum level.
Administer gabapentin 800 mg , folic acid, thiamine
[facility] and discussed regards his medications history at the facility--he was taking Wellbutrin 75 mg, 16 mg of buprenorphine previously, methadone currently he was not taking at facility.
Patient kept on telemetry and currently his QT interval 473 improved when comparing with yesterday by given the methadone administration.
EKG showed normal sinus rhythm with sinus arrhythmia, no significant.
EEG today was normal.
On 06/29/2025: CT scan without contrast showed no evidence of acute intracranial abnormality.
Psychiatrist consulted with recommendation of hold off trying Lamictal while patient is on lacosamide due to overlapping mechanisms of Lamictal with lacosamide for confusion and agitation.
Neurologist consulted: increased the dosage of Keppra 1000 mg twice a day, gabapentin 800 mg 3 times daily, and recommended to change home bupropion to another antidepressant because of low seizure threshold.
Today neurologist consulted for his current today seizure episode and they recommended to increase the lacosamide dosage from 100 mg--to 200 mg twice a day.
Recommended for psychiatry consult, seizure precautions including no driving for 6 months and reporting to the [facility] as per law.
Advised to compliance with the medications, follow-up with neurology outpatient in 4 to 6 weeks after the discharge.
silk worker consult
Overdose education.
# Psychiatry is consulted for methadone dosage modification or switch to Subutex.
# Rhabdomyolysis secondary to SEIZURES:
Labs: WBC 8.4, hemoglobin 15.2--17 today,
Potassium 5.4, blood glucose 108 high, calcium 10.5 high, bun 15, creatinine 0.8, LFTs elevated, creatinine kinase 6190 high
Potassium binder administered for hyperkalemia.
Causes for rhabdomyolysis includes traumatic, mechanical injury, prolonged immobilization, seizures, wrist strain, surgery, drug abuse, sepsis, electrolyte disorders, heat exposure.
However in this patient he has a history of seizure
Currently on cerebella EEG today showed no evidence of status epilepticus.
CK : 6190----970 high-- 431--259---217, today hold IV fluids because the patient is tolerating food.
Goal is to keep creatinine kinase less than 500.
Tylenol as needed for his headache and pain
Avoid CONTRAST, NSAIDS By given his high CPK level.
# Abnormal liver function test:
Secondary to hepatitis C positive (infection source), drug abuse
Hepatitis B IgM antibody negative unimmunized,
Order hepatitis panel but given his unimmunized status
#Hepatitis Panel:
Hep A Ag& Ab negative,
hepatitis B antibody indeterminate, hep B core antibody negative
Hep C antibody reactive,
PCR testing for hepatitis C antibody which is reactive, further testing for acute or chronic hep C hepatitis
[facility] abdomen on 06/27/25:
Mild diffusely increased hepatic echogenicity (probably diffuse hepatic steatosis which appears unchanged).
2. Mild biliary dilatation.
3. No sonographic evidence for cholelithiasis.
Fatty liver/alcohol induced liver disease.
Code: Full
Disposition: Longterm[facility].
DVT prophylaxis: Lovenox subcutaneous
Diet: regular.
Anticipated Discharge: 24 - 48 hours
Subjective/Interval History
-
Date of Service: July 02, 2025
Overnight the patient had 1 episode around 6:59 PM got TT from the nurse and requested the nurse to call rapid, recommended to administer Ativan 2 mg IV given at the time of breakthrough seizures.
However he denied today nausea, vomiting, abdominal pain, headache, neck stiffness, dizziness.
He feels restlessness because he wants Ativan more.
Today he mentioned while on the rounds he needs his methadone dosage back and he feels now right-sided withdrawal symptoms which includes GI upset, diaphoresis.
Objective Data
-
Labs:
Laboratory Results
07/02/25
05:12
WBC 6.1
Hgb 14.7
Hct 43.2
Plt Count 253
Sodium 136
Potassium 3.8
Chloride 100
Carbon Dioxide 29
BUN 8 L
Creatinine 0.8
Glucose 115 H
Calcium 9.2
Total Bilirubin 0.3
AST 26
ALT 33
Alkaline Phosphatase 68
Vital Signs:
Vital Signs
Temp Pulse Resp BP Pulse Ox
98.1 F 47 9 135/97 98
07/02/25 04:50 07/02/25 06:00 07/02/25 06:00 07/02/25 06:00 07/02/25 00:00
I&O
07/01/25 07/02/25 07/03/25
06:59 06:59 06:59
Intake Total 2280 / 2280 300 / 300
Output Total 3250 / 3250 2400 / 2400
Balance -970 / -970 -2100 / -2100
Review of Systems
-
History Source: Patient
All other systems: Reviewed and negative
Physical Exam
-
General: Well Developed and Appears in Distress
Respiratory: Clear to Auscultation
Cardiac: Regular Rhythm
GI: Soft, Nontender and Nondistended
Genito-urinary: No Costovertebral Tender
Musculoskeletal: No Clubbing, No Cyanosis and No Edema
Skin: Warm
Neuro: AO x 3
Hematologic / Lymphatic: No Lymphadenopathy and Other (Patient feels restless, anger due to reduction of methadone dosage yesterday to 100 mg)
[2025-07-02] MEDS: FOLVITE 1 MG PO (07:54)
[2025-07-02] MEDS: VITAMIN B1 100 MG PO ×2 (07:54→19:38)
[2025-07-02] MEDS: VITAMIN D3 (cholecalciferol) 25 MCG PO (07:54)
[2025-07-02] MEDS: KEPPRA 1000 MG PO ×2 (07:54→19:37)
[2025-07-02] MEDS: NEURONTIN 800 MG PO ×3 (07:54→21:09)
[2025-07-02] MEDS: NICODERM TRANSDERMAL 21 MG TRANSDERM (07:55)
[2025-07-02] MEDS: METHADONE 100 MG/10 ML PO (07:55)
[2025-07-02] MEDS: VIMPAT 100 MG IV (07:56)
[2025-07-02] MEDS: COLACE PO (07:57)
[2025-07-02] MEDS: CATAPRES 0.1 MG PO ×2 (08:05→19:37)
--- NOTE | 2025-07-02 10:22 | PTCARENOTE ---
Pt c/o nausea and stomach cramps, feeling flush, BP elevated 150/115, becoming restless and fidgety, COWS 7. Dr Tom and resident team in to see patient. Neurology was reconsulted, awaiting their feedback on titration of methadone. Pt upset his dose
was decreased this AM. Requesting PRN ativan dose to deal w/ symptoms.
--- NOTE | 2025-07-02 10:54 | W.PN.NEURO.1 ---
Today's Communication / Plan
-
Based on the patient's new 'seizure' advance lacosamide from 100 mg twice a day to dosing of 200 mg twice a day, and from IV to by mouth.
Neuro Assessment/Plan
Assessment
The patient has an opioid use disorder who is on methadone due to substance abuse
Psychiatry has seen the patient regarding the increased risk of seizures with Wellbutrin, which has been stopped. Psychiatry has recommended Lamictal due to its mood stabilizing effect and some antidepressant effect.
Routine and rapid 10-lead EEG were both unremarkable.
Plan
Continue methadone as maintenance therapy and may transition methadone to Subutex
no driving for 6 months and needs to be reported to the [facility] as per law.
Based on the patient's new 'seizure' advance lacosamide from 100 mg twice a day to dosing of 200 mg twice a day.
Continue Keppra 1000 mg twice a day and gabapentin 800 mg 3 times a day.
Reconsider in the future the use of levetiracetam due to possible agitation
Will follow as needed
Subjective/Objective
Subjective Data
Date of Service: July 02, 2025
Objective Data
Vital Signs
Temp Pulse Resp BP Pulse Ox
36.7 C 64 10 150/115 98
07/02/25 04:50 07/02/25 10:00 07/02/25 10:00 07/02/25 10:00 07/02/25 00:00
Lab Results
07/02/25 05:12
07/02/25 05:12
Sodium 136 mmol/L (135-145) 07/02/25 05:12
Potassium 3.8 mmol/L (3.5-5.1) 07/02/25 05:12
BUN 8 mg/dl (9-20) L 07/02/25 05:12
Glucose 115 mg/dl (70-99) H 07/02/25 05:12
Calcium 9.2 mg/dl (8.4-10.2) 07/02/25 05:12
Phosphorus 3.6 mg/dl (2.5-4.5) 06/27/25 19:38
Ur Buprenorphine Positive (Negative) H 06/27/25 18:42
Patient Allergies
latex Allergy (Verified 02/03/21 01:38)
Unknown
Data Reviewed
-
EEG: Report Reviewed
Labs: Report Reviewed
Reviewed with: Physician
Old Records: Summarized
Past History
Past History
ED Past Medical History: Seizures
Social History
Tobacco: Former smoker
Drug: Former user (heroin/xanax)
Living: [facility]
Employment: Not employed
Family History
Family History: Other (Reviewed and noncontributory)
Medications
-
Medications:
Generic Name Dose Route Start Last Admin
Trade Name Freq PRN Reason Stop Dose Admin
Acetaminophen 650 mg 06/27/25 15:13 07/02/25 05:13
Acetaminophen 325 Mg Tablet PO 07/25/25 15:12 650 mg
Q4HPRN PRN Administration
mild pain
Al Hydrox/Mg Hydrox/Simethicone 30 ml 06/27/25 15:13
Mag/Al/Simethicone Suspension 30 Ml Cup PO 07/25/25 15:12
QIDPRN PRN
heartburn
Benzocaine 0 applic 06/27/25 19:37
Benzocaine 20% Oral Anesthetic [place] Can TOPICAL 07/25/25 19:36
BIDPRN PRN
mouth pain
Benzocaine/Menthol 1 lozenge 06/27/25 17:39 06/27/25 20:22
Benzocaine/Menthol Lozenge PO 07/25/25 15:40 1 lozenge
Q4HPRN PRN Administration
sore throat
Chlorpromazine HCl 10 mg 06/27/25 15:13
Chlorpromazine 10 Mg Tablet PO 07/25/25 15:12
Q6HPRN PRN
hiccups
Cholecalciferol 25 mcg 06/28/25 08:00 07/02/25 07:54
Cholecalciferol (Vitamin D3) 25 Mcg Tablet (1,000 Units) PO 07/26/25 07:59 25 mcg
DAILY DALIA Administration
Clonidine HCl 0.3 mg 06/28/25 08:00 06/28/25 07:50
Clonidine 0.3 Mg Patch TRANSDERM 07/26/25 07:59 0.3 mg
TH DALIA Administration
Clonidine HCl 0.1 mg 06/27/25 20:00 07/02/25 08:05
Clonidine 0.1 Mg Tablet PO 07/25/25 19:59 0.1 mg
BID DALIA Administration
Docusate Sodium 100 mg 06/27/25 20:00 07/02/25 07:57
Docusate Sodium 100 Mg Capsule PO 07/25/25 19:59 Not Given
BID DALIA
Enoxaparin Sodium 40 mg 06/27/25 18:00 07/01/25 16:23
Enoxaparin Sodium 40 Mg/0.4 Ml Syringe SC 07/25/25 17:59 40 mg
QPM DALIA Administration
Folic Acid 1 mg 06/28/25 08:00 07/02/25 07:54
Folic Acid 1 Mg Tablet PO 07/26/25 07:59 1 mg
DAILY DALIA Administration
Gabapentin 800 mg 06/27/25 16:00 07/02/25 07:54
Gabapentin 400 Mg Capsule PO 07/25/25 15:59 800 mg
TID DALIA Administration
Guaifenesin 1,200 mg 06/27/25 15:13
Guaifenesin 600 Mg Extended Release Tablet PO 07/25/25 15:12
BIDPRN PRN
cough
Folic Acid 1 mg/ Sodium 50.2 mls @ 200.8 mls/hr 06/28/25 06:00
Chloride IV 07/26/25 05:59
DAILYPRN PRN
if NPO
Ibuprofen 400 mg 06/27/25 15:13 06/29/25 16:35
Ibuprofen 400 Mg Tablet PO 07/25/25 15:12 400 mg
TIDPRN PRN Administration
mild pain
Lacosamide 100 mg 06/30/25 06:00 07/02/25 07:56
Lacosamide (10 Mg/Ml) 200 Mg/20 Ml Vial IV 07/14/25 05:59 100 mg
Q12 DALIA Administration
Levetiracetam 1,000 mg 06/27/25 20:00 07/02/25 07:54
Levetiracetam 500 Mg Regular Release Tablet PO 07/25/25 19:59 1,000 mg
BID DALIA Administration
Lorazepam 1 mg 06/27/25 18:18 06/29/25 00:07
Lorazepam 1 Mg Tablet PO 07/25/25 18:17 1 mg
Q2HPRN PRN Administration
MSAS 5-7
Lorazepam 2 mg 06/27/25 18:18 06/30/25 19:36
Lorazepam 2 Mg/Ml Vial IV 07/25/25 18:17 2 mg
Q1HPRN PRN Administration
MSAS > 11
Lorazepam 2 mg 06/28/25 15:51 07/01/25 19:09
Lorazepam 2 Mg/Ml Vial IV 07/26/25 15:49 2 mg
Q4HPRN PRN Administration
seizures
Magnesium Hydroxide 30 ml 06/27/25 15:13
Milk Of Magnesia 30 Ml Cup PO 07/25/25 15:12
DAILYPRN PRN
constipation
Methadone HCl 100 mg 07/01/25 11:28 07/02/25 07:55
Methadone Oral Liquid (100 Mg/10 Ml) Cup PO 07/12/25 07:59 100 mg
DAILY DALIA Administration
Nicotine 21 mg 06/28/25 08:00 07/02/25 07:55
Nicotine 21 Mg Patch TRANSDERM 07/26/25 07:59 21 mg
DAILY DALIA Administration
Nicotine Polacrilex 4 mg 06/27/25 19:38 07/01/25 22:06
Nicotine 2 Mg Chewing Gum PO 07/25/25 19:37 4 mg
Q2HPRN PRN Administration
nicotine craving
Sodium Chloride 0 flush 06/27/25 16:00 06/29/25 20:54
Sodium Chloride 0.9% (Flush) Syringe IV 07/25/25 15:59 2 flush
PER PROTOCOL DALIA Administration
Sodium Chloride 0 ml 06/27/25 18:18 07/01/25 19:10
Sodium Chloride 0.9% (Preservative Free) 10 Ml Vial IV 07/25/25 18:17 10 ml
PRN PRN Administration
To dilute IV Ativan
Protocol
Thiamine HCl 100 mg 07/01/25 08:00 07/02/25 07:54
Thiamine 100 Mg Tablet PO 07/29/25 07:59 100 mg
BID DALIA Administration
Triamcinolone Acetonide 0 applic 06/27/25 20:00 07/02/25 07:56
Triamcinolone Acetonide 0.5% (Cream) 15 Gram Tube TOPICAL 07/25/25 19:59 1 applic
BID DALIA Administration
--- NOTE | 2025-07-02 13:34 | EEG.RPT ---
Electroencephalogram Report
Recording
Date of EE07/02/25
Type of EEG: Routine
Length of EEG recordin minutes
Done with Video Recording: Yes
Patient Status: Inpatient
Recording Conditions: Awake, Drowsy and Asleep
Hyperventilation Performed: No
Photic Stimulation Performed: Yes
Report
GREATER THAN 1 HOUR EEG INTERPRETATION:
Unremarkable EEG for age
CLINICAL CORRELATION:
A normal EEG does not rule out a diagnosis of epilepsy. If clinical suspicion for seizure persists, a prolonged recording may be warranted.
Clinical correlation is advised.
METHODS:
A 21 channel digitized electroencephalogram (EEG) was performed using the 10/20 international system of electrode placement and one-lead of ECG recorded. The [employer] quantitative EEG system was utilized.
ELECTROENCEPHALOGRAPHER IMPRESSION(S):
Quality of study
Good
Background
There was an unremarkable anterior-posterior voltage gradient of alpha frequency.
With eye opening the background activity changed to a low voltage mixture of frequencies.
There were no significant asymmetries of background activity noted.
Sleep
Drowsiness present
Stage 1 present
Stage 2 present
Photic Stimulation
No activation
ECG
Normal sinus rhythm
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
[2025-07-02] MEDS: METHADONE 100 MG/10 ML 15 MG PO (14:08)
[2025-07-02 14:28] LABS: HCV Quant by NAAT IU/mL Not Detected; HCV Quant by NAAT Interp Not Detected (Not Detected); HCV Quant by NAAT Log IU/mL Not Detected log IU/mL
--- NOTE | 2025-07-02 14:52 | W.PN.UPDATE ---
Update Note
Progress Note Update
I saw and evaluated the patient with the resident.
A/P:
# Breakthrough seizure, epilepsy.
Likely multifactorial including psychogenic, nonadherence to OP meds, Wellbutrin use, substance abuse withdrawal, and ?methadone use.
Cont current Keppra 1 g twice daily, Cont gabapentin 800 mg 3 times daily
Vimpat increases from 100 mg twice daily to 150 mg BID
Ativan PRN
Check extended EEG
Neuro on board, defer AED to neuro
d/w Psych, recc to resume methadone back from 100 to 115 mg daily,
# History of untreated HCV.
Hepatitis C Ab positive. HCV NAAT negative
outpt eval for Hep C treatment
# Opioid use disorder.
Cont [facility] [employer] methadone
# Anxiety, mood disorder.
Discontinued bupropion due to seizure events as above.
Now on lacosamide which may help with mood stabilization as well.
Psychiatry following
[2025-07-02] MEDS: NICORETTE 4 MG PO ×2 (15:49→21:12)
--- NOTE | 2025-07-02 16:46 | PTCARENOTE ---
Pt received additional 15mg PO methadone, see SEP.
VSS. Calm, cooperative.
[2025-07-02] MEDS: LOVENOX SC ×2 (16:50→17:33)
[2025-07-02] MEDS: VIMPAT 150 MG PO (19:36)
[2025-07-02] MEDS: COLACE 100 MG PO (19:38)
[2025-07-02] MEDS: ATIVAN 1 MG PO (20:03)
--- NOTE | 2025-07-02 21:02 | W.PN.UPDATE ---
Update Note
Progress Note Update
pt seen for assessment. upset about reduction in methadone, feels that he will be in withdrawal at lower dose. reviewed reasoning for reduction (that there is some potential of lowering seizure threshhold.) Pt's history clearly demonstrates best
chance of sobriety is methadone maintenance. Weighing relative risks, will support continuing methadone at 115 as he had been getting at [place] prior to being taken into custody (states he has outpatient arranged at [facility]; in past had been at
[facility] up to 160 per day.) Transition to suboxone will need to wait for a later time.
[2025-07-02] MEDS: MELATONIN 5 MG PO (21:11)
--- NOTE | 2025-07-02 22:20 | PTCARENOTE ---
Recc'd pt at shift change; AAOx3, c/o mild withdrawal sx. COWS=5, MSAS=6, medicated appropriately (see MAR), sx improved per pt. Pt c/o mild L shoulder pain, improved with Tylenol. NSR on the monitor, tolerating RA, lungs clear. Remainder of
assessment as documented. PM hygiene performed. Updated on POC. Pt resting comfortably in bed, call valerio within reach, shackled to the bed by the ankle, 2 [facility] guards at the bedside.
[2025-07-03] VITALS (25 sets, daily range): BP systolic 99–152; BP diastolic 60–102
[2025-07-03] MEDS: TYLENOL 650 MG PO ×3 (04:58→16:09)
[2025-07-03] MEDS: NICORETTE 4 MG PO ×2 (05:08→16:08)
--- NOTE | 2025-07-03 07:48 | W.PN.HOSP.TC ---
Addendum entered and electronically signed by Mara Ramirez MD 07/03/25 16:39:
I saw and evaluated the patient independently. I reviewed and discussed the resident�s note and agree with findings and plan as documented by Dr. Kothari.
GENERAL: well developed, well nourished, male in no apparent distress
HEENT: NC/AT
HEART: regular rate and rhythm, +S1, +S2
LUNGS: clear to auscultation bilaterally
ABDOM: soft, nontender, nondistended, + bowel sounds
EXT: no cyanosis, clubbing, or edema
NEUROLOGIC: grossly intact
Pseudoseizure--keppra therapeutic--apprec neuro--lacosamide dosing increased--methadone can lower the seizure threshold but pt does not want to drop the dose here due to concerns of withdrawal--cont keppra, gabapentin and lacosamide--Urine
toxicology results positive for urine buprenorphine, methadone, benzodiazepines--multiple EEGs have NOT found any seizure activity as per neuro--also pt had a 'seizure' after he was told he was going back to the custodial--apprec psych who recommends
keeping the methadone at current dose--no driving per neuro for 6 months--Advised to compliance with the medications, follow-up with neurology outpatient in 4 to 6 weeks after the discharge.
Rhabdomyolysis secondary to pseudoseizures--s/p IVF and CPK now normal--tylenol PRN
Abnormal liver function tests--likely due to drug abuse--hep C positive but RNA nondectected so no active infection, no treatment needed
Code status -- Full
Disposition: Long Term/[facility].
DVT proph-- Lovenox subcutaneous
Original Note:
Today's Communication/Plan
-
discharge today with methadone and out patient follow up
Assessment / Plan
Assessment / Plan
30-year-old male with past medical history of polysubstance abuse, CHF, hypertension presented to the ED in police custody from [facility] for evaluation of seizure.
Urine toxicology results positive for urine buprenorphine, methadone, benzodiazepines,
# Polysubstance abuse induce seizure :
Levetiracetam 10.4 within therapeutic range.
Methadone long-acting administration for opioid withdrawal. COWS scale today is 7 due to reduced dosage of methadone from 115 to 100 mg
Urine toxicology results positive for urine buprenorphine, methadone, benzodiazepines,
No need to follow up MSAS scale by given negative alcohol withdrawal urine screen.
cows scale less than 5, methadone maintenance, subutex on hold
Currently received Keppra 1000 mg, monitor Keppra serum level.
Administer gabapentin 800 mg , folic acid, thiamine
Called [facility] and discussed regards his medications history at the facility--he was taking Wellbutrin 75 mg, 16 mg of buprenorphine previously, methadone currently he was not taking at facility.
Patient kept on telemetry and currently his QT interval 473 improved when comparing with yesterday by given the methadone administration.
EKG showed normal sinus rhythm with sinus arrhythmia, no significant.
EEG today was normal.
On 06/29/2025: CT scan without contrast showed no evidence of acute intracranial abnormality.
Psychiatrist consulted with recommendation of hold off trying Lamictal while patient is on lacosamide due to overlapping mechanisms of Lamictal with lacosamide for confusion and agitation.
Neurologist consulted: increased the dosage of Keppra 1000 mg twice a day, gabapentin 800 mg 3 times daily, and recommended to change home bupropion to another antidepressant because of low seizure threshold.
Today neurologist consulted for his current today seizure episode and they recommended to increase the lacosamide dosage from 100 mg--to 200 mg twice a day.
Recommended for psychiatry consult, seizure precautions including no driving for 6 months and reporting to the [employer] as per law.
Advised to compliance with the medications, follow-up with neurology outpatient in 4 to 6 weeks after the discharge.
special delivery worker consult
Overdose education.
# Psychiatry is consulted for methadone dosage modification or switch to Subutex.
plan: Mg over 2 mg
slow taper methadone.
# Rhabdomyolysis secondary to SEIZURES:
Labs: WBC 8.4, hemoglobin 15.2--17 today,
Potassium 5.4, blood glucose 108 high, calcium 10.5 high, bun 15, creatinine 0.8, LFTs elevated, creatinine kinase 6190 high
Potassium binder administered for hyperkalemia.
Causes for rhabdomyolysis includes traumatic, mechanical injury, prolonged immobilization, seizures, wrist strain, surgery, drug abuse, sepsis, electrolyte disorders, heat exposure.
However in this patient he has a history of seizure
Currently on cerebella EEG today showed no evidence of status epilepticus.
CK : 6190----970 high-- 431--259---217, today hold IV fluids because the patient is tolerating food.
Goal is to keep creatinine kinase less than 500.
Tylenol as needed for his headache and pain
Avoid CONTRAST, NSAIDS By given his high CPK level.
# Abnormal liver function test:
Secondary to hepatitis C positive (infection source), drug abuse
Hepatitis B IgM antibody negative unimmunized,
Order hepatitis panel but given his unimmunized status
#Hepatitis Panel:
Hep A Ag& Ab negative,
hepatitis B antibody indeterminate, hep B core antibody negative
Hep C antibody reactive,
PCR testing for hepatitis C antibody which is reactive, further testing for acute or chronic hep C hepatitis
USG abdomen on 06/27/25:
Mild diffusely increased hepatic echogenicity (probably diffuse hepatic steatosis which appears unchanged).
2. Mild biliary dilatation.
3. No sonographic evidence for cholelithiasis.
Fatty liver/alcohol induced liver disease.
Code: Full
[facility]
DVT prophylaxis: Lovenox subcutaneous
Diet: regular.
Anticipated Discharge: Today
Subjective/Interval History
-
Date of Service: July 03, 2025
Overnight the patient complains of pain, irritability, sweating. However he did not experience seizure episodes denied rest of the systemic symptoms includes chest pain, palpitation, dizziness, shortness of breath.
His COWS scale 5 overnight. He was resumed to his previous methadone dosage from 100 to 115 mg yesterday and felt better afterwards. Methadone dosage was discussed with psychiatrist.
Psychiatrist recommendation includes weighing relative risks, will support continuing methadone at 115 as he had been getting at [place] prior to being taken into custody (states he has outpatient arranged at [facility]; in past had been at [facility] up to
160 per day.) Transition to suboxone will need to wait for a later time.
By given his current seizure episode at IMU a day ago, Neurologist recommended lacosamide dosage was increased from 100 to 200 mg and switch to oral medications however in chart I have seen 150 mg oral medication administered yesterday.
On 07/02 EEG finding: A normal EEG does not rule out a diagnosis of epilepsy. If clinical suspicion for seizure persists, a prolonged recording may be warranted. Clinical correlation is advised.
Objective Data
-
Labs:
Laboratory Results
07/03/25 07/03/25 07/03/25
05:05 06:18 06:48
WBC Cancelled Pending Pending
Hgb Cancelled Pending Pending
Hct Cancelled Pending Pending
Plt Count Cancelled Pending Pending
Sodium Cancelled Cancelled
Potassium Cancelled Cancelled
Chloride Cancelled Cancelled
Carbon Dioxide Cancelled Cancelled
BUN Cancelled Cancelled
Creatinine Cancelled Cancelled
Glucose Cancelled Cancelled
Calcium Cancelled Cancelled
Total Bilirubin Cancelled Cancelled
AST Cancelled Cancelled
ALT Cancelled Cancelled
Alkaline Phosphatase Cancelled Cancelled
07/03/25
06:50
WBC
Hgb
Hct
Plt Count
Sodium Pending
Potassium Pending
Chloride Pending
Carbon Dioxide Pending
BUN Pending
Creatinine Pending
Glucose Pending
Calcium Pending
Total Bilirubin Pending
AST Pending
ALT Pending
Alkaline Phosphatase Pending
Vital Signs:
Vital Signs
Temp Pulse Resp BP Pulse Ox
97.6 F 52 7 123/85 97
07/03/25 03:07 07/03/25 06:00 07/03/25 06:00 07/03/25 06:00 07/03/25 03:00
I&O
07/02/25 07/03/25 07/04/25
06:59 06:59 06:59
Intake Total 300 / 300 720 / 720
Output Total 2400 / 2400 1800 / 1800
Balance -2100 / -2100 -1080 / -1080
Review of Systems
-
History Source: Patient
All other systems: Reviewed and negative
Physical Exam
-
General: Well Developed and Well Nourished
Respiratory: Clear to Auscultation
Cardiac: Regular Rhythm and S1/S2
GI: Soft, Nontender and Nondistended
Genito-urinary: No Costovertebral Tender
Musculoskeletal: No Clubbing, No Cyanosis and No Edema
Skin: Warm
Neuro: AO x 3
Hematologic / Lymphatic: No Lymphadenopathy
Psych: Calm
[2025-07-03] MEDS: KEPPRA 1000 MG PO ×2 (07:49→21:20)
[2025-07-03] MEDS: VITAMIN B1 100 MG PO ×2 (07:49→21:20)
[2025-07-03] MEDS: COLACE PO ×3 (07:49→21:19)
[2025-07-03] MEDS: NEURONTIN 800 MG PO ×3 (07:50→21:19)
[2025-07-03] MEDS: FOLVITE 1 MG PO (07:50)
[2025-07-03] MEDS: CATAPRES 0.1 MG PO ×2 (07:50→21:19)
[2025-07-03] MEDS: VITAMIN D3 (cholecalciferol) 25 MCG PO (07:50)
[2025-07-03] MEDS: METHADONE 100 MG/10 ML 115 MG PO (07:51)
[2025-07-03] MEDS: VIMPAT 150 MG PO ×2 (07:52→21:20)
[2025-07-03] MEDS: NICODERM TRANSDERMAL 21 MG TRANSDERM (07:52)
--- NOTE | 2025-07-03 08:20 | PTCARENOTE ---
Assumed care of pt after morning report/rounds. He is drowsy but arouses easily to verbal cues, He denies any pain at this time. He appears to be guarding his rt arm but with assessment it is noted to be full ROM, no pain, Midline intact with good
flush and blood return. Pt tolerating morning meds, discussed dose of Methadone is 115mg, Resp even on room air, pulse ox is 98%. Lungs clear but diminished. Pt refuses morning colace. Sitting up in bed with 2 guards present. 1 shackle intact to
left lower extremity to bed.
[2025-07-03 09:18] LABS: Hematocrit 46.1 % (39.0-52.0); Hemoglobin 15.6 g/dL (13.0-18.0); Mean Corp Hgb Conc. 33.8 g/dL (33.0-37.0); Mean Corpuscular Volume 85.8 fL (80.0-94.0); Platelet Count 275 10^3/uL (130-400); Red Cell Dist. Width 13.1 % (11.5-14.5)
[2025-07-03 09:36] LABS: ALT (SGPT) 45 U/L (0-50); AST (SGOT) 42 U/L (17-59); Albumin 4.7 g/dl (3.5-5.0); Alkaline Phosphatase 74 U/L (38-126); Blood Urea Nitrogen 8 mg/dl (9-20); Calcium 9.6 mg/dl (8.4-10.2); Carbon Dioxide 30 mmol/L (22-30); Chloride 101 mmol/L (98-107); Estimated Creatinine Clearance 117 ml/min; Glucose 103 mg/dl (70-99); Potassium 4.6 mmol/L (3.5-5.1); Sodium 136 mmol/L (135-145); Total Protein 7.8 g/dl (6.3-8.2); eGFR > 60.00
--- NOTE | 2025-07-03 10:20 | CM ---
Patient for return to [facility], please call report to [phone]./fax [phone]. Camille from [facility] updated per chart review: please call #[phone]. CM will continue to follow for discharge planning needs.
Plan; transfer to [facility]
--- NOTE | 2025-07-03 10:35 | PTCARENOTE ---
Patient with complaint of mild nausea, he tolerated 100% breakfast and drinking gingerale. He has a prolonged QT and is sleeping soundly at long intervals, He aroused to verbal stimuli and answers questions appropriately
[2025-07-03 11:57] LABS: Magnesium 2.0 mg/dl (1.6-2.3)
[2025-07-03] MEDS: NSS (PRESERVATIVE FREE) 10 ML IV (12:19)
[2025-07-03 12:29] LABS: Glucose - Point of Care 106 mg/dl (70-99)
[2025-07-03] MEDS: TIGAN 200 MG IM (12:38)
--- NOTE | 2025-07-03 12:52 | PTCARENOTE ---
Addendum entered by Meredith Bridges RN 07/03/25 13:24:
and forth. His legs begin to tremble and toes curled and hands clenched, No verbal response to stimuli. Eyes difficult to open by staff but assessment reveals pupils 4 and reactive, HR up to 130, resp unchanged pulse ox 96% on room air. He continues
with generalized tremors, Hospitalist and Neurologist notified, 2 mg IV Ativan given and seizure-like activity ceased approx 7 mins after onset. He is slow to open eyes, he does follow directions. IM Tigan given and pt verbalized understanding of IM
injection. Pt tolerated without complaint. EEG ordered and tech is at bedside performing test. 2 Guards present throughout the event.
Original Note:
patient complaining of headache and ongoing nausea, medicated with Tylenol and again requested something for nausea. Pt does have prolonged QT. at 1216, pt is sitting up in bed and begins very gentle rocking upper body back and
--- NOTE | 2025-07-03 14:13 | CM ---
Addendum entered by Zarina Cao 07/03/25 16:47:
Patient discharge [facility], CM will continue to follow for discharge planning needs.
Original Note:
Patient for discharge back to [facility]; CM called to [facility] and spoke with Vera. Please call report to; [phone]. CM will continue to follow for discharge planning needs.
Plan; return to [facility]; please call report
--- NOTE | 2025-07-03 14:19 | EEG.RPT ---
Electroencephalogram Report
Recording
Date of EE07/03/25
Type of EEG: Routine
Length of EEG recordin minutes
Done with Video Recording: Yes
Patient Status: Inpatient
Recording Conditions: Awake, Drowsy and Asleep
Hyperventilation Performed: No
Photic Stimulation Performed: Yes
Report
LESS THAN 1 HOUR EEG INTERPRETATION:
Unremarkable EEG for age
CLINICAL CORRELATION:
A normal EEG does not rule out a diagnosis of epilepsy. If clinical suspicion for seizure persists, a prolonged recording may be warranted.
Clinical correlation is advised.
METHODS:
A 21 channel digitized electroencephalogram (EEG) was performed using the 10/20 international system of electrode placement and one-lead of ECG recorded. The [employer] quantitative EEG system was utilized.
ELECTROENCEPHALOGRAPHER IMPRESSION(S):
Quality of study
Good
Background
There was an unremarkable anterior-posterior voltage gradient of alpha frequency.
With eye opening the background activity changed to a low voltage mixture of frequencies.
There were no significant asymmetries of background activity noted.
Sleep
Drowsiness present
Stage 1 present
Stage 2 present
Photic Stimulation
No activation
ECG
Normal sinus rhythm
[2025-07-03] MEDS: MOTRIN 400 MG PO (14:37)
[2025-07-03] MEDS: COLACE 100 MG PO (14:38)
--- NOTE | 2025-07-03 17:05 | W.PN.UPDATE ---
Update Note
Progress Note Update
spoke with Dr. Dominguez re: pseudoseizure activity--recommends transferring to ICU for STAT [facility] monitoring--and NPO status due to aspiration risk
[2025-07-03] MEDS: LOVENOX 40 MG SC (17:11)
--- NOTE | 2025-07-03 17:17 | PTCARENOTE ---
patient with 2 additional episodes of shaking, unresponsiveness and tachycardia. During these episodes he does not respond to painful stimuli, eyes are closed and hands are clenched and toes are curled. Discussed throughout the day with neurology
and Hospitalist. TT videos shared with MD team .Pt was to be discharged but began with an episode and difficult to arouse after shaking and stopped. discharge order which is now cancelled. Pt will be transferred to ICU
--- NOTE | 2025-07-03 18:29 | PTCARENOTE ---
Pt received to ICU bed 3370 from IMU. Ceribell placed. Siezure burden zero at this time. Pt AAOx3 and cooperative. VSS.
--- NOTE | 2025-07-03 20:02 | PTCARENOTE ---
on assessment pt drowsy but AAOx3, denies pain and SOB at this time, SR on the monitor, RR 7-15 MDs have been aware, ceribell on and functional, 0% seizure burden, NPO x meds, no complaints at this time.
[2025-07-03] MEDS: MELATONIN 5 MG PO (22:17)
[2025-07-04] VITALS (12 sets, daily range): BP systolic 94–128; BP diastolic 46–91; BMI 28.7
--- NOTE | 2025-07-04 | PTCARENOTE ---
pt appears to be resting comfortably in bed, seizure burned 0% on ceribell
[2025-07-04] MEDS: NICORETTE 4 MG PO (02:51)
[2025-07-04 03:25] LABS: Hematocrit 46.8 % (39.0-52.0); Hemoglobin 15.6 g/dL (13.0-18.0); Mean Corp Hgb Conc. 33.3 g/dL (33.0-37.0); Mean Corpuscular Volume 87.6 fL (80.0-94.0); Platelet Count 277 10^3/uL (130-400); Red Cell Dist. Width 13.2 % (11.5-14.5)
--- NOTE | 2025-07-04 03:41 | PTCARENOTE ---
pt had episode of rigidness and eyes rolling back, VP DIRECT[employer] FIN[employer] at bedside, ceribell remains on and functioning and reading 0% seizure burden, IV line flushed with saline and pt appears more relaxed, pulse ox 99%, pt now awake and asking for water.
[2025-07-04 03:54] LABS: ALT (SGPT) 39 U/L (0-50); AST (SGOT) 25 U/L (17-59); Albumin 4.5 g/dl (3.5-5.0); Alkaline Phosphatase 78 U/L (38-126); Blood Urea Nitrogen 10 mg/dl (9-20); Calcium 9.7 mg/dl (8.4-10.2); Carbon Dioxide 31 mmol/L (22-30); Chloride 100 mmol/L (98-107); Estimated Creatinine Clearance 117 ml/min; Glucose 102 mg/dl (70-99); Potassium 4.4 mmol/L (3.5-5.1); Sodium 136 mmol/L (135-145); Total Protein 7.7 g/dl (6.3-8.2); eGFR > 60.00
[2025-07-04] MEDS: TYLENOL 650 MG PO (04:15)
--- NOTE | 2025-07-04 07:27 | W.RAPID.EEG ---
Rapid EEG
-
Procedure Date: 07/03/25
Patient Status: Inpatient
Results:
Impression:
No evidence of status epilepticus
Recording Information:
Diagnostic Recording Time: 12:56:00 (776 minutes)
Recording 1: [email or web address]
Start Time: Jul 03, 2025 18:24 PM End Time: Jul 04, 2025 07:20 AM
Recording Technique: This EEG was obtained using a 10 lead, 8 channel system positioned circumferentially without any parasagittal coverage (rapid EEG). Computer selected EEG is reviewed as well as background features and all clinically significant
events. Clarity algorithm utilized and implemented to provide analysis of underlying activity and seizure detection used to facilitate reading. ICD-10 Code [id number]
Clinical History: OLINDA THOMSON is a 30 year old Other, Other: SZ patient undergoing EEG to screen for non-convulsive status epilepticus.
--- NOTE | 2025-07-04 07:34 | W.PN.HOSP.TC ---
Addendum entered and electronically signed by Mara Ramirez MD 07/04/25 14:31:
I saw and evaluated the patient independently. I reviewed and discussed the resident�s note and agree with findings and plan as documented by Dr. Kothari.
GENERAL: well developed, well nourished, male in no apparent distress
HEENT: NC/AT
HEART: regular rate and rhythm, +S1, +S2
LUNGS: clear to auscultation bilaterally
ABDOM: soft, nontender, nondistended, + bowel sounds
EXT: no cyanosis, clubbing, or edema
NEUROLOGIC: grossly intact
Pseudoseizure--keppra therapeutic--apprec neuro--lacosamide dosing increased--methadone can lower the seizure threshold but pt does not want to drop the dose here due to concerns of withdrawal--cont keppra, gabapentin and lacosamide--Urine
toxicology results positive for urine buprenorphine, methadone, benzodiazepines--multiple EEGs have NOT found any seizure activity as per neuro--also pt had a 'seizure' after he was told he was going back to the [place] [facility], transferred to ICU for
STATEEG monitoring with again NO seizure activity noted--apprec psych who recommends keeping the methadone at current dose--no driving per neuro for 6 months--Advised to compliance with the medications, follow-up with neurology outpatient in 4 to 6
weeks after the discharge--neuro decreasing the doses of antiseizure meds
Rhabdomyolysis secondary to pseudoseizures--s/p IVF and CPK now normal--tylenol PRN
Abnormal liver function tests--likely due to drug abuse--hep C positive but RNA non-dectected so no active infection, no treatment needed
Code status -- Full
Disposition: Longterm/[facility].
DVT proph-- Lovenox subcutaneous
discharge
Original Note:
Today's Communication/Plan
-
Discharge the patient with reduced the dosage of lacosamide, levetiracetam.
Assessment / Plan
Assessment / Plan
30-year-old male with past medical history of polysubstance abuse, CHF, hypertension presented to the ED in police custody from [facility] for evaluation of seizure.
Urine toxicology results positive for urine buprenorphine, methadone, benzodiazepines,
# Polysubstance abuse induce pseudo seizure :
Levetiracetam 10.4 within therapeutic range.
Methadone long-acting administration for opioid withdrawal. COWS scale today is 7 due to reduced dosage of methadone from 115 to 100 mg
Urine toxicology results positive for urine buprenorphine, methadone, benzodiazepines,
No need to follow up MSAS scale by given negative alcohol withdrawal urine screen.
cows scale less than 5, methadone maintenance, subutex on hold
Currently received Keppra 1000 mg, monitor Keppra serum level.
Administer gabapentin 800 mg , folic acid, thiamine
Called [facility] and discussed regards his medications history at the facility--he was taking Wellbutrin 75 mg, 16 mg of buprenorphine previously, methadone currently he was not taking at facility.
Patient kept on telemetry and currently his QT interval 473 improved when comparing with yesterday by given the methadone administration.
EKG showed normal sinus rhythm with sinus arrhythmia, no significant.
EEG today was normal.
On 06/29/2025: CT scan without contrast showed no evidence of acute intracranial abnormality.
Psychiatrist consulted with recommendation of hold off trying Lamictal while patient is on lacosamide due to overlapping mechanisms of Lamictal with lacosamide for confusion and agitation.
Neurologist consulted: increased the dosage of Keppra 1000 mg twice a day, gabapentin 800 mg 3 times daily, and recommended to change home bupropion to another antidepressant because of low seizure threshold.
Today neurologist consulted for his current today seizure episode and they recommended to increase the lacosamide dosage from 100 mg--to 200 mg twice a day.
Recommended for psychiatry consult, seizure precautions including no driving for 6 months and reporting to the [employer] as per law.
Advised to compliance with the medications, follow-up with neurology outpatient in 4 to 6 weeks after the discharge.
feed in worker consult
Overdose education.
# Psychiatry is consulted for methadone dosage modification or switch to Subutex.
plan: Mg over 2 mg
slow taper methadone.
# Rhabdomyolysis secondary to pseudo SEIZURES:
Labs: WBC 8.4, hemoglobin 15.2--17 today,
Potassium 5.4, blood glucose 108 high, calcium 10.5 high, bun 15, creatinine 0.8, LFTs elevated, creatinine kinase 6190 high
Potassium binder administered for hyperkalemia.
Causes for rhabdomyolysis includes traumatic, mechanical injury, prolonged immobilization, seizures, wrist strain, surgery, drug abuse, sepsis, electrolyte disorders, heat exposure.
However in this patient he has a history of seizure
Currently on cerebella EEG today showed no evidence of status epilepticus.
CK : 6190----970 high-- 431--259---217, today hold IV fluids because the patient is tolerating food.
Goal is to keep creatinine kinase less than 500.
Tylenol as needed for his headache and pain
Avoid CONTRAST, NSAIDS By given his high CPK level.
# Abnormal liver function test:
Secondary to hepatitis C positive (infection source), drug abuse
Hepatitis B IgM antibody negative unimmunized,
Order hepatitis panel but given his unimmunized status
#Hepatitis Panel:
Hep A Ag& Ab negative,
hepatitis B antibody indeterminate, hep B core antibody negative
Hep C antibody reactive,
PCR testing for hepatitis C antibody which is reactive, further testing for acute or chronic hep C hepatitis
USG abdomen on 06/27/25:
Mild diffusely increased hepatic echogenicity (probably diffuse hepatic steatosis which appears unchanged).
2. Mild biliary dilatation.
3. No sonographic evidence for cholelithiasis.
Fatty liver/alcohol induced liver disease.
Code: Full
Disposition: Longterm/[facility].
DVT prophylaxis: Lovenox subcutaneous
Diet: regular.
Anticipated Discharge: Today
Subjective/Interval History
-
Date of Service: July 04, 2025
Overnight the patient was on cerebella to record EEG for seizures. Today morning he does not have any episodes of pseudoseizures, he feels good and he is hungry.
Objective Data
-
Labs:
Laboratory Results
07/04/25
03:10
WBC 6.4
Hgb 15.6
Hct 46.8
Plt Count 277
Sodium 136
Potassium 4.4
Chloride 100
Carbon Dioxide 31 H
BUN 10
Creatinine 0.8
Glucose 102 H
Calcium 9.7
Total Bilirubin 0.6
AST 25
ALT 39
Alkaline Phosphatase 78
Vital Signs:
Vital Signs
Temp Pulse Resp BP Pulse Ox
98.1 F 54 10 105/75 96
07/04/25 07:21 07/04/25 06:00 07/04/25 06:00 07/04/25 06:00 07/04/25 06:00
I&O
07/03/25 07/04/25 07/05/25
06:59 06:59 06:59
Intake Total 720 / 720 2019
Output Total 1800 / 1800 2500 / 2500
Balance -1080 / -1080 -480 / -480
Review of Systems
-
History Source: Patient
All other systems: Reviewed and negative
Physical Exam
-
General: Well Developed and Well Nourished
Respiratory: Clear to Auscultation
Cardiac: Regular Rhythm and S1/S2
GI: Soft, Nontender and Nondistended
Genito-urinary: No Costovertebral Tender
Musculoskeletal: No Clubbing and No Cyanosis
Skin: Warm
Neuro: AO x 3
Hematologic / Lymphatic: No Lymphadenopathy
Psych: Calm
--- NOTE | 2025-07-04 07:37 | W.PN.NEURO.1 ---
Today's Communication / Plan
-
decrease lacosamide from 150 mg twice a day to dosing of 100 mg twice a day.
Decrease levetiracetam dosing from 1000 mg twice a day to dosing of 500 mg twice a day as there is no evidence of seizure activity
Neuro Assessment/Plan
Assessment
The patient has an opioid use disorder who is on methadone due to substance abuse
Psychiatry has seen the patient regarding the increased risk of seizures with Wellbutrin, which has been stopped. Psychiatry has recommended Lamictal due to its mood stabilizing effect and some antidepressant effect.
Routine and rapid 10-lead EEG were both unremarkable.
Repeated
Plan
Continue methadone as maintenance therapy and may transition methadone to Subutex
no driving for 6 months and needs to be reported to the [facility] as per law.
decrease lacosamide from 150 mg twice a day to dosing of 100 mg twice a day.
Decrease levetiracetam dosing from 1000 mg twice a day to dosing of 500 mg twice a day as there is no evidence of seizure activity
Would hold diet due to the patient's lethargy and risk of aspiration.
Reconsider in the future the use of levetiracetam due to possible agitation
Will follow as needed
Subjective/Objective
Subjective Data
Date of Service: July 04, 2025
Objective Data
Vital Signs
Temp Pulse Resp BP Pulse Ox
36.7 C 54 10 105/75 96
07/04/25 07:21 07/04/25 06:00 07/04/25 06:00 07/04/25 06:00 07/04/25 06:00
Lab Results
07/04/25 03:10
07/04/25 03:10
Sodium 136 mmol/L (135-145) 07/04/25 03:10
Potassium 4.4 mmol/L (3.5-5.1) 07/04/25 03:10
BUN 10 mg/dl (9-20) 07/04/25 03:10
Glucose 102 mg/dl (70-99) H 07/04/25 03:10
Calcium 9.7 mg/dl (8.4-10.2) 07/04/25 03:10
Phosphorus 3.6 mg/dl (2.5-4.5) 06/27/25 19:38
Ur Buprenorphine Positive (Negative) H 06/27/25 18:42
Patient Allergies
latex Allergy (Verified 02/03/21 01:38)
Unknown
Past History
Past History
ED Past Medical History: Other (pseudoseizures not electrical seizures)
Social History
Tobacco: Former smoker
Drug: Former user (heroin/xanax)
Living: [facility]
Employment: Not employed
Family History
Family History: Other (Reviewed and noncontributory)
Medications
-
Medications:
Generic Name Dose Route Start Last Admin
Trade Name Freq PRN Reason Stop Dose Admin
Acetaminophen 650 mg 06/27/25 15:13 07/04/25 04:15
Acetaminophen 325 Mg Tablet PO 07/25/25 15:12 650 mg
Q4HPRN PRN Administration
mild pain
Al Hydrox/Mg Hydrox/Simethicone 30 ml 06/27/25 15:13
Mag/Al/Simethicone Suspension 30 Ml Cup PO 07/25/25 15:12
QIDPRN PRN
heartburn
Benzocaine 0 applic 06/27/25 19:37
Benzocaine 20% Oral Anesthetic [place] Can TOPICAL 07/25/25 19:36
BIDPRN PRN
mouth pain
Benzocaine/Menthol 1 lozenge 06/27/25 17:39 06/27/25 20:22
Benzocaine/Menthol Lozenge PO 07/25/25 15:40 1 lozenge
Q4HPRN PRN Administration
sore throat
Chlorpromazine HCl 10 mg 06/27/25 15:13
Chlorpromazine 10 Mg Tablet PO 07/25/25 15:12
Q6HPRN PRN
hiccups
Cholecalciferol 25 mcg 06/28/25 08:00 07/03/25 07:50
Cholecalciferol (Vitamin D3) 25 Mcg Tablet (1,000 Units) PO 07/26/25 07:59 25 mcg
DAILY DALIA Administration
Clonidine HCl 0.3 mg 06/28/25 08:00 06/28/25 07:50
Clonidine 0.3 Mg Patch TRANSDERM 07/26/25 07:59 0.3 mg
TH DALIA Administration
Clonidine HCl 0.1 mg 06/27/25 20:00 07/03/25 21:19
Clonidine 0.1 Mg Tablet PO 07/25/25 19:59 0.1 mg
BID DALIA Administration
Docusate Sodium 100 mg 06/27/25 20:00 07/03/25 21:19
Docusate Sodium 100 Mg Capsule PO 07/25/25 19:59 Not Given
BID DALIA
Enoxaparin Sodium 40 mg 06/27/25 18:00 07/03/25 17:11
Enoxaparin Sodium 40 Mg/0.4 Ml Syringe SC 07/25/25 17:59 40 mg
QPM DALIA Administration
Folic Acid 1 mg 06/28/25 08:00 07/03/25 07:50
Folic Acid 1 Mg Tablet PO 07/26/25 07:59 1 mg
DAILY DALIA Administration
Gabapentin 800 mg 06/27/25 16:00 07/03/25 21:19
Gabapentin 400 Mg Capsule PO 07/25/25 15:59 800 mg
TID DALIA Administration
Guaifenesin 1,200 mg 06/27/25 15:13
Guaifenesin 600 Mg Extended Release Tablet PO 07/25/25 15:12
BIDPRN PRN
cough
Folic Acid 1 mg/ Sodium 50.2 mls @ 200.8 mls/hr 06/28/25 06:00
Chloride IV 07/26/25 05:59
DAILYPRN PRN
if NPO
Ibuprofen 400 mg 06/27/25 15:13 07/03/25 14:37
Ibuprofen 400 Mg Tablet PO 07/25/25 15:12 400 mg
TIDPRN PRN Administration
mild pain
Lacosamide 100 mg 07/04/25 07:31
Lacosamide (Vimpat) 50 Mg Tablet PO 07/30/25 19:59
BID DALIA
Levetiracetam 500 mg 07/04/25 07:31
Levetiracetam 500 Mg Regular Release Tablet PO 07/25/25 19:59
BID DALIA
Magnesium Hydroxide 30 ml 06/27/25 15:13
Milk Of Magnesia 30 Ml Cup PO 07/25/25 15:12
DAILYPRN PRN
constipation
Melatonin 5 mg 07/02/25 19:40 07/03/25 22:17
Melatonin 5 Mg Tablet PO 07/30/25 21:59 5 mg
HS PRN Administration
insomnia
Methadone HCl 115 mg 07/03/25 08:00 07/03/25 07:51
Methadone Oral Liquid (100 Mg/10 Ml) Cup PO 07/17/25 07:59 115 mg
DAILY DALIA Administration
Nicotine 21 mg 06/28/25 08:00 07/03/25 07:52
Nicotine 21 Mg Patch TRANSDERM 07/26/25 07:59 21 mg
DAILY DALIA Administration
Nicotine Polacrilex 4 mg 06/27/25 19:38 07/04/25 02:51
Nicotine 2 Mg Chewing Gum PO 07/25/25 19:37 4 mg
Q2HPRN PRN Administration
nicotine craving
Sodium Chloride 0 flush 06/27/25 16:00 06/29/25 20:54
Sodium Chloride 0.9% (Flush) Syringe IV 07/25/25 15:59 2 flush
PER PROTOCOL DALIA Administration
Sodium Chloride 0 ml 06/27/25 18:18 07/03/25 12:19
Sodium Chloride 0.9% (Preservative Free) 10 Ml Vial IV 07/25/25 18:17 10 ml
PRN PRN Administration
To dilute IV Ativan
Protocol
Thiamine HCl 100 mg 07/01/25 08:00 07/03/25 21:20
Thiamine 100 Mg Tablet PO 07/29/25 07:59 100 mg
BID DALIA Administration
Triamcinolone Acetonide 0 applic 06/27/25 20:00 07/03/25 21:20
Triamcinolone Acetonide 0.5% (Cream) 15 Gram Tube TOPICAL 07/25/25 19:59 1 applic
BID DALIA Administration
[2025-07-04] MEDS: FOLVITE 1 MG PO (08:51)
[2025-07-04] MEDS: CATAPRES 0.1 MG PO (08:51)
[2025-07-04] MEDS: VITAMIN D3 (cholecalciferol) 25 MCG PO (08:51)
[2025-07-04] MEDS: VIMPAT 100 MG PO (08:52)
[2025-07-04] MEDS: COLACE PO (08:52)
[2025-07-04] MEDS: METHADONE 100 MG/10 ML 115 MG PO (08:52)
[2025-07-04] MEDS: VITAMIN B1 100 MG PO (08:52)
[2025-07-04] MEDS: NEURONTIN 800 MG PO (08:52)
[2025-07-04] MEDS: KEPPRA 500 MG PO (08:52)
[2025-07-04] MEDS: NICODERM TRANSDERMAL 21 MG TRANSDERM (08:59)
--- NOTE | 2025-07-04 09:16 | PTCARENOTE ---
No seizure activity, Ceribell discontinued per Dr. Dominguez. Patient is AAOx4, requesting dosages of methadone and seizure meds. Medications adjusted by neurology. plan to leave patient NPO and discharge back to correctional facility, will report
to correctional facility RN.
--- NOTE | 2025-07-04 09:38 | CM ---
Patient for discharge back to [facility]; CM called to [facility] and spoke with Vera. Please call report to; [phone]. CM will continue to follow for discharge planning needs.
Plan; return to [facility]; please call report
--- NOTE | 2025-07-04 16:49 | W.DCSUMMARY ---
Addendum entered and electronically signed by Mara Ramirez MD 07/05/25 15:18:
Read, reviewed, and agree. See same day progress note for additional details. Time spent coordinating care, DC planning, review of DC plan of care with resident, transition of care, review of records in EMR, med rec, consults, notes, d/w
consultants, nursing, family, and CM = 40 minutes
Original Note:
Discharge Summary
Discharge Data
Date of Admission: 06/27/25
Date of Discharge: 07/04/25
Total time spent discharging patient (in min): >30m
-
Pending Results: No
Hospital Course
Discharging Physician : Dr. Ramirez
Disposition : [facility]
Primary care physician : [facility]
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
Chronic Discharge diagnosis : Polysubstance/IV drug use history, anxiety/depression
Hospital Course :
Valeriy is a 30-year-old male who was brought into the emergency department for witnessed 2-minute long tonic-clonic episode with reported subsequent postictal period following arrest at [place] secondary to polysubstance use with impending
transfer to [facility]. Patient has a reported history of seizure disorder, polysubstance use, primary hypertension, anxiety, depression. In route to the ED patient reports that he was withdrawing from dexmedetomidine, fentanyl, alcohol,
benzodiazepines. He was found to have slightly elevated liver enzymes, CK in the 6000's, hypoalbuminemia, hyperkalemia, felt to be dehydrated. EKG on admission showed normal sinus rhythm with no ischemic findings and normal QTc. Patient initially
felt to have had a breakthrough seizure due to not taking his outpatient Keppra and gabapentin doses over the last 2 days secondary to active substance use. Bedside EEG and ceribell monitoring were ordered without evidence of seizure. Patient was
increased from home dose of Keppra 500 mg twice daily to 1000 mg twice daily and resumed on home gabapentin 800 mg 3 times daily. His bupropion was stopped at that time as it can raise his seizure threshold. He was also recommended for psychiatry
consult. The following day patient had episode of generalized tonic-clonic movements, eyes rolling in the back of his head, unresponsive episode that lasted less than a minute, and was preceded by a visit from the psychiatrist to discuss his
anxiety and depression. Patient received IV Ativan during that episode and was presumed postictal, complaining of headache in the 'prefrontal cortex'. Additional EEG was ordered at that time which did not end up showing electrical activity
suggestive of seizure event. Nevertheless, patient was started on 200 mg IV lacosamide loading, with transition to lacosamide 100 mg twice daily. The following day, the patient had another reported seizure-like episode, was seen by neurology soon
thereafter with no evidence of postictal state, with normal EEG at that time as well. There were discussions with psychiatry about starting Lamictal due to its antiseizure and mood stabilizing benefits, however this was deferred due to patient also
being on lacosamide and the significant interaction that may occur with taking both. Patient was seizure-free for roughly 1-1/2 to 2 days, however patient then had witnessed seizure-like events for which he was placed on a 24-hour EEG. Patient's
lacosamide was then increased to 200 mg twice daily. 24-hour EEG was reviewed by both AI and neurologist on staff with no evidence of seizure activity. After being told that he would be cleared to return to [facility], patient soon
thereafter had another seizure-like event, however neurologist exam during that time was not consistent with expectation for electrophysiologic/epileptiform seizures as would be expected and was diagnosed prior. Given multiple negative EEG studies,
physical exam findings incongruent with purported disease, and suggestive timing of seizure-like activity with convenient personal gain which seem to correlate with anticipated discharge back to [facility], there has been raised consideration for an
alternative diagnosis to the patient's symptomatology, including but not limited to pseudoseizures/functional disassociative seizures vs. malingering vs. other. Patient was ultimately medically cleared by neurologist and hospitalist for discharge
back to [facility].
Psychiatry recommended decreasing patient's methadone dose due to risk of increasing seizure threshold, however patient reports not tolerating this decreased dose and after discussion with neurology he was put back on his regular dosing of 150 mg
methadone daily. He may down titrate methadone in favor of Suboxone as outpatient, at the discretion of an addiction medicine specialist at [facility].
For his polysubstance use and withdrawal from opioids, alcohol and dexmedetomidine, patient was continued on COWS protocol, home methadone, lorazepam as needed, symptomatic management with antiemetics.
Patient's rhabdomyolysis improved with IV fluids, along with his electrolyte disturbances.
Due to concern for active seizures not controlled by medication patient is unable to drive for at least 6 months per [employer] law. Will need to follow-up with neurologist outpatient in 4 to 6 weeks and regularly thereafter to reassess seizure burden
and address potential future return to driving.
Important imaging findings :
US Abdomen Complete/Upper (06/28/2025):
1. Mild diffusely increased hepatic echogenicity (probably diffuse hepatic steatosis which appears unchanged).
2. Mild biliary dilatation.
3. No sonographic evidence for cholelithiasis.
CT Head W/o Iv Contrast (06/29/2025):
No evidence of acute intracranial abnormality.
Discharge Plan
-
Patient Disposition: [facility]
Discharge Diagnosis/Procedures: Polysubstance Abuse/Withdrawal
breakthrough Seizure Disorder
elevated transaminases- USG finding.
Chronic Hepatitis C
hypertension
Condition: Good
Diet: No restrictions
Activity: No restrictions
Driving Restrictions: No driving
Bathing Restrictions: None
Instructions: Seizures, Adult (DC), Syncope (Fainting) (DC), BLOOD PRESSURE
Referrals:
[facility] [Family Provider, General]
Additional Discharge Medication Instructions: STOP Welbutrin. DO NOT TAKE this medication ever as it will increase your risk of having seizures.
Prescriptions:
New
thiamine mononitrate (vit B1) 100 mg Tablet
100 mg PO BID Qty: 30 0RF
polyethylene glycol 3350 [ClearLax] 17 gram/dose powder
4 g PO DAILY Qty: 238 1RF
levetiracetam 500 mg Tablet
500 mg PO BID Qty: 30 0RF
lacosamide 50 mg Tablet
100 mg PO BID 30 Days Qty: 120 0RF
Continued
clonidine HCl 0.1 mg Tablet
0.1 mg PO BID
acetaminophen [Tylenol] 325 mg Tablet
650 mg PO Q4HPRN PRN (Reason: mild pain)
triamcinolone acetonide 0.5 % Cream
1 applic TOPICAL BID
methadone 10 mg Tablet
115 mg PO DAILY
chlorpromazine 10 mg Tablet
10 mg PO Q6HPRN PRN (Reason: hiccups)
magnesium hydroxide [Milk of Magnesia] 400 mg/5 mL Suspension
2,400 mg PO DAILYPRN PRN (Reason: constipation)
gabapentin 800 mg Tablet
800 mg PO TID
ibuprofen 400 mg Tablet
400 mg PO TIDPRN PRN (Reason: mild pain)
nicotine 21 mg/24 hr Patch 24 Hour
1 patch TRANSDERMAL DAILY
docusate sodium [Colace] 100 mg Capsule
100 mg PO BID
folic acid 1 mg Tablet
1 mg PO DAILY
clonidine 0.3 mg/24 hr Patch Weekly
1 patch TRANSDERMAL TH
alum-mag hydroxide-simeth 200-200-20 mg/5 mL Suspension
30 ml PO QIDPRN PRN (Reason: heartburn)
benzocaine 20 % Gel
1 applic MUCOUS MEMBRANE BIDPRN PRN (Reason: mouth pain)
eucalyptus-menthol Lozenge
3.1 mg MUCOUS MEMBRANE Q4HPRN PRN (Reason: cough)
nicotine (polacrilex) 4 mg Lozenge
4 mg BUCCAL Q2HPRN PRN (Reason: nicotine craving)
cholecalciferol (vitamin D3) [Vitamin D3] 25 mcg (1,000 unit) Tablet
25 mcg PO DAILY
Cepacol Sore Throat (isabel-men) 15-2.6 mg Lozenge
1 rika MUCOUS MEMBRANE Q4HPRN PRN (Reason: sore throat)
guaifenesin 600 mg Tablet Extended Release 12hr
1,200 mg PO BIDPRN PRN (Reason: cough)
Discontinued
levetiracetam [Keppra] 500 mg Tablet
500 mg PO BID
clindamycin HCl 150 mg Capsule
300 mg PO Q6H
Rx Instructions:
start 06/23/25 and stop 06/30/25
bupropion HCl [Wellbutrin XL] 150 mg Tablet Extended Release 24 Hr
150 mg PO DAILY
Discharge Orders:
Discharge Patient (As Directed); Ordered 07/04/25
Ordered By: Danica Kothari
Discharge Date and Time
Discharge Date/Time: 07/04/25 12:30
Print Language: NEPALI
== END 2025-07-04 12:30 | DRG 880 ==
LOC: ICU 15:04
PROVIDERS: Psychiatry & Neurology Neurology; ADMITTING PHYSICIAN Internal Medicine; ATTENDING PHYSICIAN Internal Medicine; CONSULT PHYSICIAN Psychiatry & Neurology Neurology; CONSULT PHYSICIAN Psychiatry & Neurology Psychiatry; EMERGENCY PHYSICIAN Emergency Medicine
PROC: XX20X89 Monitoring of Brain Electrical Activity, Computer-aided Detection and Notification, New Technology Group 9 (ICD-10-PCS; 2025-06-27)
DX: F44.5 Conversion disorder with seizures or convulsions (principal); F11.23 Opioid dependence with withdrawal; M62.82 Rhabdomyolysis; I11.0 Hypertensive heart disease with heart failure; E87.5 Hyperkalemia; E86.0 Dehydration; F41.9 Anxiety disorder, unspecified; B19.20 Unspecified viral hepatitis C without hepatic coma; Z91.040 Latex allergy status; Z79.899 Other long term (current) drug therapy; Z87.891 Personal history of nicotine dependence; Z91.148 Patient's other noncompliance with medication regimen for other reason
CPT/HCPCS: 70450; 76700; 80053; 80177; 80306; 80307; 82077; 82550; 82962; 83735; 84100; 85025; 85027; 86704; 86705; 86706; 86709; 86803; 87522; 93005; 95813; 95816; 96361; 96374; 99285; C9254